=== PATIENT | male | born 1960 | race Caucasian/White ===

== ENCOUNTER → 2017-09-09 14:44 | Outpatient (REF) | payer MEDICAID, SELFPAY ==
[2017-09-09 20:23] LABS: Amphetamine/Metha Screen,Urine Negative ng/mL (<1000); Barbiturates Screen,Urine Negative ng/mL (<200); Benzodiazepines Screen,Urine Negative ng/mL (200); Cannabinoid Screen,Urine Negative ng/mL (<50); Cocaine Screen,Urine Negative ng/g (<300); Methadone Screen,Urine Negative ng/mL (<300); Opiate Screen,Urine Positive ng/mL (<300); Phencyclidine Screen,Urine Negative ng/mL (<25)
== END ==
LOC: LAB 14:44
PROVIDERS: Visit Provider Physician Assistant
DX: Z79.899 Other long term (current) drug therapy (principal)
CPT/HCPCS: 80305

== ENCOUNTER → 2018-01-14 09:27 | Outpatient (CLI) | payer MEDICAID, SELFPAY ==
--- NOTE | 2018-01-14 09:33 | XR_ITS ---
XR finger LT min 2V CLINICAL INDICATION: ITS.REASON: S/P 07-18-17 LEFT THUMB CARPOMETACARPAL ARTHOSIS ORDERING PHYSICIAN: Marlee Niels PATIENT AGE: 57 years Comparison: 08/16/2016 FINDINGS: There is been interval arthrodesis with a large staple stabilizing the first metacarpal carpal joint. There is some minimal lucency around the limbs of the metallic apparatus which is nonspecific. There are no previous exams available for comparison. There are 2 small metallic clips lateral to the scaphotrapezium joint. Mild osteoarthritic changes are present at the first metacarpal carpal joint. There is good alignment. IMPRESSION: Status post arthrodesis of the first metacarpal carpal joint with some lucency around the staple of questionable clinical significance. COMPARISON with old postsurgical films needed. Mild osteoarthritis at the first metacarpocarpal joint with good alignment
== END ==
PROVIDERS: PCP Emergency Medicine; Visit Provider Nurse Practitioner Family
DX: M79.645 Pain in left finger(s) (principal)
CPT/HCPCS: 73140

== ENCOUNTER → 2018-03-28 15:30 | Outpatient (CLI) | payer MEDICAID, SELFPAY ==
[2018-03-28 18:32] LABS: Amphetamine/Metha Screen,Urine Negative ng/mL (<1000); Barbiturates Screen,Urine Negative ng/mL (<200); Benzodiazepines Screen,Urine Negative ng/mL (<200); Cannabinoid Screen,Urine Negative ng/mL (<50); Cocaine Screen,Urine Negative ng/mL (<300); Methadone Screen,Urine Negative ng/mL (<300); Opiate Screen,Urine Positive ng/mL (<300); Phencyclidine Screen,Urine Negative ng/mL (<25)
== END ==
PROVIDERS: Visit Provider Nurse Practitioner Family
DX: Z79.899 Other long term (current) drug therapy (principal)
CPT/HCPCS: 80305

== ENCOUNTER → 2018-04-18 07:45 | Outpatient (CLI) | payer MEDICAID, SELFPAY ==
--- NOTE | 2018-04-18 07:47 | MR_ITS ---
MR cervical spine wo con, MR 3-d myelogram/MRCP HISTORY: HX neck surgery [id number]. Neck and shoulder pain worse in LT arm. Neck pain when turning head from left. Headache. ITS.REASON: Neck pain ORDERING PHYSICIAN: RADHA Escobar PATIENT AGE: 58 years Comparison: MRI 10-22-16 TECHNIQUE: Standard multiplanar multiecho sequences are performed without contrast. 3-D MIP and myelographic images are also rendered and reviewed FINDINGS: There is normal alignment. The craniocervical junction has an unremarkable appearance. C2-C3: Unremarkable. C3-C4: Mild degenerative disc disease with mild bulging disc. C4-C5: Degenerative disc disease with bulging disc. Minimal anterolisthesis of C4 of 3 mm. There is some endplate and uncovertebral hypertrophy along with facet hypertrophic change with moderate left foraminal narrowing. The disc is slightly eccentric toward the left. Canal stenosis is present at this level at 10 mm with type II endplate changes. The left-sided foraminal narrowing may be slightly worse than when compared to the previous exam. C5-C6: Prior anterior cervical disc fusion with artifact obscuring fine detail. C6-C7: Mild concentric bulging disc. C7-T1: Unremarkable. IMPRESSION: 1. Multilevel lumbar spondylosis with postsurgical changes at C5-C6. Please see above for detailed description at each level. 2. Degenerative disc disease at C4-C5 with minimal anterolisthesis of C4 with bulging disc and facet and ligamentum hypertrophy along with uncovertebral and facet hypertrophy with canal stenosis and with moderate left-sided foraminal narrowing slightly worse when compared to the previous exam 3. No disc herniation evident
== END ==
PROVIDERS: PCP Emergency Medicine; Visit Provider Physician Assistant
DX: M43.22 Fusion of spine, cervical region (principal)
CPT/HCPCS: 72141; 76376

== ENCOUNTER → 2018-07-09 18:08 | Outpatient (CLI) | payer MEDICAID, SELFPAY ==
[2018-07-09 21:58] LABS: Amphetamine/Metha Screen,Urine Negative ng/mL (<1000); Barbiturates Screen,Urine Negative ng/mL (<200); Benzodiazepines Screen,Urine Negative ng/mL (<200); Cannabinoid Screen,Urine Negative ng/mL (<50); Cocaine Screen,Urine Negative ng/mL (<300); Methadone Screen,Urine Negative ng/mL (<300); Opiate Screen,Urine Positive ng/mL (<300); Phencyclidine Screen,Urine Negative ng/mL (<25)
== END ==
PROVIDERS: Visit Provider Physician Assistant
DX: Z79.899 Other long term (current) drug therapy (principal)
CPT/HCPCS: 80305

== ENCOUNTER 2018-08-25 07:00 | Outpatient (RCR) | payer MEDICAID, SELFPAY | END 2018-09-29 10:09 | disposition home or self-care (01) | LOC: OT 07:00 | PROVIDERS: Visit Provider Plastic Surgery | DX: M79.645 Pain in left finger(s) | CPT/HCPCS: 97110; 97140; 97165 ==

== ENCOUNTER → 2018-09-10 17:32 | Outpatient (CLI) | payer MEDICAID, SELFPAY | PROVIDERS: Visit Provider Physician Assistant | DX: N39.0 Urinary tract infection, site not specified (principal) | CPT/HCPCS: 87086 ==

== ENCOUNTER → 2018-09-30 12:56 | Outpatient (CLI) | payer MEDICAID, SELFPAY ==
[2018-09-30 12:58] LABS: Microscopic, Urine URINE MICROSCOPIC (MICROSCOPIC)
[2018-09-30 13:21] LABS: Appearance,Urine CLOUDY (Clear); Bilirubin,Urine Negative (Negative); Blood, Urine 3+ (Negative); Color,Urine YELLOW (Yellow); Glucose,Urine (UA) Negative (Negative); Ketones,Urine Negative (Negative); Leukocyte Esterase,Urine 2+ (Negative); Nitrate,Urine Negative (Negative); PH,Urine 5.5 (5.0-8.5); Protein,Urine 2+ (Negative); Specific Gravity, Urine >= 1.030 (1.005-1.030); Urobilinogen,Urine 0.2 EU/dl (0.2)
[2018-09-30 13:44] LABS: Bacteria,Urine 1+ /lpf; RBC,Urine 20-50 #/hpf (0-3); Squamous Epithelial Cell,Urine Occasional #/hpf (0-5); WBC,Urine 50-100 #/hpf (0-3)
== END ==
PROVIDERS: Visit Provider Emergency Medicine
DX: R31.9 Hematuria, unspecified (principal)
CPT/HCPCS: 81001; 87077; 87086

== ENCOUNTER → 2018-10-07 18:23 | Outpatient (CLI) | payer MEDICAID, SELFPAY ==
[2018-10-07 19:31] LABS: Amphetamine/Metha Screen,Urine Negative ng/mL (<1000); Barbiturates Screen,Urine Negative ng/mL (<200); Benzodiazepines Screen,Urine Negative ng/mL (<200); Cannabinoid Screen,Urine Negative ng/mL (<50); Cocaine Screen,Urine Negative ng/mL (<300); Methadone Screen,Urine Negative ng/mL (<300); Opiate Screen,Urine Positive ng/mL (<300); Phencyclidine Screen,Urine Negative ng/mL (<25)
== END ==
PROVIDERS: Visit Provider Physician Assistant
DX: Z79.899 Other long term (current) drug therapy (principal)
CPT/HCPCS: 80305

== ENCOUNTER → 2019-01-12 11:31 | Outpatient (POV) | payer MEDICAID, SELFPAY ==
[2019-01-12 11:52] VITALS: BP 137/70; PULSE 57; RESP 18; O2SAT 98; BMI 26.7
--- NOTE | 2019-01-12 12:20 | HMH.PAINSOAP ---
[facility] Pain Management SOAP Note Subjective:: Patient is a pleasant 58-year-old male who presents today for complaints of neck pain with radiation to his right arm. Patient has had injections in the past and reports that he had 90% relief. He states his last injection therapy was more than a year ago. 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 He feels this has been what has caused increased pain again. He does rate his pain a 7 out of 10 today. He says the pain is at the base of his neck radiating to his right shoulder and arm. He has taken muscle relaxers in the past, along with Lyrica. The patient says he does not do well with oral medication management. He would prefer injections. Patient states pills make me feel funny in my head and I do not like taking them . The patient does take Calumet 7.5 mg 1 p.o. 3 times daily as prescribed per Dr. Story. The patient is not on any anticoagulation therapy. Review of Systems General: No recent weight changes, no fever, no sleep disturbances Respiratory: No cough, no shortness of air, no recurring pulmonary infections Cardiovascular/peripheral vascular: No chest pain, no palpitations, no edema, no shortness of breath Gastrointestinal: No new onset incontinence, normal bowel movements reported Genitourinary: No new onset incontinence Musculoskeletal: Neck pain, right shoulder pain, right arm pain Psychiatric: Normal mood/affect Neurological: [Denies weakness in extremities], [denies balance issues] Objective:: Physical exam General: Alert and oriented x3, no acute distress, pleasant and cooperative, [on room air] Lungs: Respirations even and unlabored, symmetrical chest expansion Eyes: PERRL Musculoskeletal: Flexion and extension of cervical spine somewhat guarded secondary to pain, deep tendon reflexes normal, strength in upper and lower extremities [5/5], normal gait noted Neurological: Speech clear, biomathematician equal, no gross sensory deficit Assessment:: 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 Cervical spondylosis Plan:: We will schedule the patient for vehicle epidural injection at C6 and C7. The patient is not on any anticoagulation therapy. He will continue home stretching program along with NSAIDs. We will see the patient back after his procedure and reassess his symptoms at that time. He is been instructed to call the office if he has any concerns prior to his next appointment. Dr. Hinkle has reviewed this note and agrees with this plan of care. This note was dictated using voice recognition software and make contain errors or omissions.
--- NOTE | 2019-01-12 12:23 | P.CONS_ITS ---
[facility] Pain Management SOAP Note Subjective:: Patient is a pleasant 58-year-old male who presents today for complaints of neck pain with radiation to his right arm. Patient has had injections in the past and reports that he had 90% relief. He states his last injection therapy was more than a year ago. 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 He feels this has been what has caused increased pain again. He does rate his pain a 7 out of 10 today. He says the pain is at the base of his neck radiating to his right shoulder and arm. He has taken muscle relaxers in the past, along with Lyrica. The patient says he does not do well with oral medication management. He would prefer injections. Alec huitron states pills make me feel funny in my head and I do not like taking them . The patient does take Martin 7.5 mg 1 p.o. 3 times daily as prescribed per Dr. Story. The patient is not on any anticoagulation therapy. Review of Systems General: No recent weight changes, no fever, no sleep disturbances Respiratory: No cough, no shortness of air, no recurring pulmonary infections Cardiovascular/peripheral vascular: No chest pain, no palpitations, no edema, no shortness of breath Gastrointestinal: No new onset incontinence, normal bowel movements reported Genitourinary: No new onset incontinence Musculoskeletal: Neck pain, right shoulder pain, right arm pain Psychiatric: Normal mood/affect Neurological: [Denies weakness in extremities], [denies balance issues] Objective:: Physical exam General: Alert and oriented x3, no acute distress, pleasant and cooperative, [on room air] Lungs: Respirations even and unlabored, symmetrical chest expansion Eyes: PERRL Musculoskeletal: Flexion and extension of cervical spine somewhat guarded secondary to pain, deep tendon reflexes normal, strength in upper and lower extremities [5/5], normal gait noted Neurological: Speech clear, it application development 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 Cervical spondylosis Plan:: We will schedule the patient for vehicle epidural injection at C6 and C7. The patient is not on any anticoagulation therapy. He will continue home stretching program along with NSAIDs. We will see the patient back after his procedure and reassess his symptoms at that time. He is been instructed to call the office if he has any concerns prior to his next appointment. Dr. Hinkle has reviewed this note and agrees with this plan of care. This note was dictated using voice recognition software and make contain errors or omissions.
== END ==
PROVIDERS: PCP Emergency Medicine; Visit Provider Clinical Nurse Specialist Family Health
DX: M50.10 Cervical disc disorder with radiculopathy, unspecified cervical region (principal); M47.892 Other spondylosis, cervical region
CPT/HCPCS: 99212

== ENCOUNTER → 2019-02-23 08:54 | Outpatient (POV) | payer MEDICAID, SELFPAY ==
[2019-02-23 09:07] VITALS: BP 135/75; PULSE 56; RESP 18; O2SAT 98; BMI 26.6
--- NOTE | 2019-02-23 09:31 | P.CONS_ITS ---
[facility] Pain Management SOAP Note Subjective:: Patient is a pleasant 59-year-old white male who presents today for follow-up after cervical epidural steroid injection. Patient did not get any relief from this. Most of his pain is when he is turning his neck. Patient has had a previous surgery on his cervical spine he would like a second opinion in regards to his current state. Patient and I discussed facet joint injections he is interested in pursuing this. He is tried and failed multiple modalities of treatment including anti-inflammatories, medications, physical therapy. He is trying to continue a home stretching program however it is becoming more difficult. He is not on any anticoagulation therapy. ROS General: no recent weight change, no fever, no sleep disturbances Respiratory: no cough, no shortness of air, no recurring pulmonary infections Cardiovascular/Peripheral Vascular: No chest pain, No palpitations, no edema, no shortness of breath. Gastrointestinal: no incontinence, normal bowel movements reported Genitourinary: no incontinence Musculoskeletal: Neck pain Psychiatric: normal mood/ affect, Neurological: [denies weakness in extremities], [denies balance issues] Objective:: Physical Exam General: Alert and oriented x3, no acute distress, pleasant and cooperative, [on room air] Lungs: Resps E/U, Symmetrical chest expansion, Eyes: PERRL Musculoskeletal: Flexion and extension of cervical spine somewhat guarded secondary to pain, deep tendon reflexes normal, strength in upper and lower extremities [5/5], normal gait noted positive Spurling's test Neurological: speech clear, car repairer equal, no gross sensory deficits Assessment:: Postlaminectomy syndrome cervical spine with cervical degenerative disc disease along with facet arthropathy Plan:: We will set him up for a C4-C5 C5-C6 cervical facet joint injection/medial branch block bilaterally to see if this is beneficial. He may be a candidate for rhizotomy. He is had this pain for over 6 months and has failed other conservative treatments. We will also set him up with Dr. Scott Abdi for consultation in regards to his cervical pain Dr. Hinkle has reviewed this note and agrees with this plan of care. This note was dictated using voice recognition software and may contain errors or omissions Pain Management Hx Components *Have you ever received a pneumonia vaccine?: No *Have you received a flu vaccine this season?: Yes - *Social History *Occupational Status:: other *Travel in the last 8 weeks: None
== END ==
PROVIDERS: PCP Emergency Medicine; Visit Provider Clinical Nurse Specialist Family Health
DX: M96.1 Postlaminectomy syndrome, not elsewhere classified (principal); M50.30 Other cervical disc degeneration, unspecified cervical region; M54.02 Panniculitis affecting regions of neck and back, cervical region
CPT/HCPCS: 99212

== ENCOUNTER → 2019-03-09 14:09 | Outpatient (CLI) | payer MEDICAID, SELFPAY ==
[2019-03-09 15:02] LABS: Amphetamine/Metha Screen,Urine Negative ng/mL (<1000); Barbiturates Screen,Urine Negative ng/mL (<200); Benzodiazepines Screen,Urine Negative ng/mL (<200); Cannabinoid Screen,Urine Negative ng/mL (<50); Cocaine Screen,Urine Negative ng/mL (<300); Methadone Screen,Urine Negative ng/mL (<300); Opiate Screen,Urine Positive ng/mL (<300); Phencyclidine Screen,Urine Negative ng/mL (<25)
== END ==
PROVIDERS: Visit Provider Physician Assistant
DX: Z79.899 Other long term (current) drug therapy (principal)
CPT/HCPCS: 80305

== ENCOUNTER → 2019-04-30 11:06 | Outpatient (CLI) | payer OTHER, SELFPAY ==
--- NOTE | 2019-04-30 11:08 | MR_ITS ---
PROCEDURE: MR CERVICAL SPINE WO CON CLINICAL INDICATION: NECK PAIN Neck pain, headache, limited range of motion COMPARISON: SPCERVWO MR cervical spine wo con from 04/18/2018 TECHNIQUE: Standard multiplanar multiecho sequences are performed without contrast. 3-D MIP and myelographic images are also rendered and reviewed FINDINGS: Normal alignment. The cranial cervical junction has an unremarkable appearance. C2-C3: Unremarkable. C3-C4: Degenerative disc disease with facet and uncovertebral hypertrophy causing moderate to severe left-sided foraminal narrowing. C4-C5: Degenerative disc disease with mild bulging disc and endplate hypertrophic changes. There is minimal anterolisthesis of C4 of 3 mm. There is canal stenosis at this level at 10 mm. C5-C6: Postsurgical changes with prior anterior cervical disc fusion with moderate degree of artifact. C6-C7: Degenerate disc disease with bulging disc with borderline narrowing of the canal at 11 mm. Mild foraminal narrowing bilaterally slightly greater on the left compared to the right side not significantly changed. C6-C7: Mild degenerative disc disease. Overall no significant change 04/18/2018. No extruded herniated disc evident. IMPRESSION: 1. C3-C4: Degenerative disc disease with facet and uncovertebral hypertrophy causing moderate to severe left-sided foraminal narrowing. 2. C4-C5: Degenerative disc disease with mild bulging disc and endplate hypertrophic changes. There is minimal anterolisthesis of C4 of 3 mm. There is canal stenosis at this level at 10 mm. 3. C5-C6: Postsurgical changes with prior anterior cervical disc fusion with moderate degree of artifact. 4. C6-C7: Degenerate disc disease with bulging disc with borderline narrowing of the canal at 11 mm. Mild foraminal narrowing bilaterally slightly greater on the left compared to the right side not significantly changed. 5. No extruded herniated disc. Overall no significant change Dictated by: Sachin Hernandez MD 05/01/2019 06:29 Electronically signed by Sachin Hernandez MD in [place] 05/01/2019 13:42
== END ==
PROVIDERS: PCP Emergency Medicine; Visit Provider Anesthesiology
DX: M54.2 Cervicalgia (principal)
CPT/HCPCS: 72141; 76376

== ENCOUNTER → 2019-06-09 08:22 | Outpatient (CLI) | payer OTHER, SELFPAY ==
--- NOTE | 2019-06-09 08:29 | XR_ITS ---
PROCEDURE: XR CHEST 2V CLINICAL HISTORY: Congestion Cough and congestion COMPARISON: CXR2 CHEST-AP VIEW ONLY from 12/02/2015 FINDINGS: The cardiomediastinal silhouette and pulmonary vascularity are within normal limits. Numerous small bilateral nodular opacities consistent with miliary nodules from old granulomatous disease. This is not significantly changed. No lobar consolidation or collapse. There is a bone plate along the lower cervical spine. No acute bony abnormalities. IMPRESSION: Chronic changes, no change with no acute Dictated by: Sachin Hernandez MD 06/09/2019 16:18 Electronically signed by Sachin Hernandez MD in [place] 06/09/2019 16:18
== END ==
PROVIDERS: PCP Emergency Medicine; Visit Provider Physician Assistant
DX: J98.8 Other specified respiratory disorders (principal)
CPT/HCPCS: 71046

== ENCOUNTER → 2019-07-06 13:35 | Outpatient (CLI) | payer OTHER, SELFPAY ==
[2019-07-06 14:45] LABS: Amphetamine/Metha Screen,Urine Negative ng/mL (<1000); Barbiturates Screen,Urine Negative ng/mL (<200); Benzodiazepines Screen,Urine Negative ng/mL (<200); Cannabinoid Screen,Urine Negative ng/mL (<50); Cocaine Screen,Urine Negative ng/mL (<300); Methadone Screen,Urine Negative ng/mL (<300); Opiate Screen,Urine Positive ng/mL (<300); Phencyclidine Screen,Urine Negative ng/mL (<25)
== END ==
PROVIDERS: Visit Provider Physician Assistant
DX: Z79.899 Other long term (current) drug therapy (principal)
CPT/HCPCS: 80305

== ENCOUNTER → 2019-12-02 14:15 | Outpatient (CLI) | payer OTHER, SELFPAY ==
--- NOTE | 2019-12-02 14:16 | CA_ITS ---
APPROVED REPORT EXAM: Comprehensive 2D, Doppler, and color-flow Echocardiogram Meatcutter: Marlee Baron RVT Ht: 6 ft 5 in Wt: 226lbs BSA: 2.36 BP: 132/80 mmHg Indications: SOA,FATIGUE,SMOKER 2D Dimensions LVOT 2.18 cm (M/F) 1.5-2.5 M-Mode Dimensions RVDd 3.44 cm (0.9-2.6) LVDd 5.74 cm (3.5-5.7) LVDs 3.74 cm (3.5-5.7) IVSd 0.85 cm (0.6-1.1) PWd 0.55 cm (0.6-1.1) EF (Teich) 63.30% FS 34.80% EDV (Teich) 162.60 mL ESV (Teich) 59.60 mL LV Diastology E/A Ratio 0.89 Mitral Valve MV A Velocity 76.00 (40-130 cm/s) Left Ventricle Left atrium is mildly enlarged, left ventricle is normal size, mild concentric left ventricular hypertrophy, visually estimated ejection fraction 55% with no regional wall motion abnormality. Grade 1 diastolic dysfunction seen without tissue Doppler evidence of raise left atrial pressure. Right Ventricle Right atrium and right ventricle are mildly enlarged with normal contractility. Aortic Valve Aortic valve is minimally thickened and fibrosed, there is no aortic stenosis or aortic insufficiency. Mitral Valve Mitral valve is grossly normal, there is mild mitral regurgitation. Tricuspid Valve Tricuspid valve is grossly normal, there is mild tricuspid regurgitation, calculated right ventricular systolic pressure is within normal range. Pulmonic Valve Pulmonic valve is poorly visualized. Great Vessels Aortic root is normal size. Pericardium No significant pericardial effusion noted. Conclusion 1. Mild biatrial enlargement, normal left ventricular size, mild concentric left ventricular hypertrophy, visually estimated ejection fraction 55% with no regional wall motion abnormality, grade 1 diastolic dysfunction seen without tissue Doppler evidence of raise left atrial pressure. 2. Mildly enlarged right ventricle with normal contractility. 3. Mild mitral and tricuspid regurgitation. 4. No significant pericardial effusion noted. Electronically signed by : Telly Stallings, 12/03/2019 15:24:36
== END ==
PROVIDERS: PCP Physician Assistant; Visit Provider Physician Assistant
DX: R06.02 Shortness of breath (principal)
CPT/HCPCS: 93306

== ENCOUNTER → 2020-01-20 10:40 | Outpatient (CLI) | payer OTHER, SELFPAY ==
[2020-01-20 14:36] LABS: Coronavirus 19 IgG Antibody Negative (Negative); Coronavirus 19 IgM Antibody Negative (Negative)
[2020-01-21 12:19] LABS: Covid-19 Nasal PCR Sendout Lex NOT DETECTED
== END ==
PROVIDERS: PCP Emergency Medicine; Visit Provider Physician Assistant
DX: Z03.818 Encounter for observation for suspected exposure to other biological agents ruled out (principal)
CPT/HCPCS: 36415; 86328; U0004

== ENCOUNTER → 2020-02-22 08:37 | Outpatient (POV) | payer OTHER, SELFPAY ==
[2020-02-22 08:48] VITALS: BP 139/71; PULSE 58; RESP 18; O2SAT 99; BMI 26.7
--- NOTE | 2020-02-22 08:57 | P.CONS_ITS ---
[facility] Pain Management SOAP Note Subjective:: Patient is a pleasant 60-year-old white male who presents today for follow-up. Patient has had epidural injections in the past with good relief. Patient is having difficulty now with turning his head side to side. He is having minimal radiation of pain. Patient does have facet arthropathy. Patient rates his pain today a 7 out of 10. He is currently on Palmer from his primary care physician. Patient would like to do some injective therapy to help with his increase in pain recently. Patient currently not on any anti-inflammatories other than [id number]. We will call in diclofenac 75 mg 1 p.o. twice daily. He is not on any anticoagulation therapy. ROS General: no recent weight change, no fever, no sleep disturbances Respiratory: no cough, no shortness of air, no recurring pulmonary infections Cardiovascular/Peripheral Vascular: No chest pain, No palpitations, no edema, no shortness of breath. Gastrointestinal: no new onset incontinence, normal bowel movements reported Genitourinary: no new onset incontinence Musculoskeletal: Neck pain Psychiatric: normal mood/ affect Neurological: [denies new onset weakness in extremities], [denies new onset balance issues] Objective:: Physical Exam General: Alert and oriented x3, no acute distress, pleasant and cooperative, [on room air] Lungs: Resps E/U, Symmetrical chest expansion, Eyes: PERRL Musculoskeletal: Flexion and extension of cervical spine somewhat guarded secondary to pain, deep tendon reflexes normal, strength in upper and lower extremities [5/5], normal gait noted Neurological: speech clear, crematory operator 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 Patient may be a candidate for a neurotomy in the future. Patient understands it this is diagnostic in nature. We will also call in diclofenac 75 mg 1 p.o. twice daily for the patient. I will follow-up with him after his injection reassess his symptoms at that time he has been instructed to call the office if he has any issues prior to his next appointment. Dr. Hinkle has reviewed this note and agrees with this plan of care. This note was dictated using voice recognition software and may contain errors or omissions [facility] History I have reviewed the patient's past medical history: Yes Medical History: Reports:: Gastroesophageal Reflux Disease(GERD) Denies:: Cancer, Diabetes Mellitus Type 1, MRSA, Seizures *Have you ever received a pneumonia vaccine?: Yes *Have you received a flu vaccine this season?: Yes Other Medical History: Reports: Arthritis, Other Laterality Cases: Bilateral: Tonsillectomy Other Surgeries: Yes: Cancer Surgery, Colonoscopy, Hernia Repair, Skin Cancer Excision, Other Amputation: No Fractures: No - *Social History Smoking Status: Current every day smoker Tobacco Type: cigarettes # Packs/Day (cigarettes): 1 Alcohol Intake: never Substance Use Type: marijuana *Occupational Status:: other Housing: house Household Members: none *Travel in the last 8 weeks: None Family Hx:: No significant family history
== END ==
PROVIDERS: PCP Emergency Medicine; Visit Provider Clinical Nurse Specialist Family Health
DX: M50.10 Cervical disc disorder with radiculopathy, unspecified cervical region (principal); M96.1 Postlaminectomy syndrome, not elsewhere classified; M12.88 Other specific arthropathies, not elsewhere classified, other specified site
CPT/HCPCS: 99212

== ENCOUNTER → 2020-04-26 11:51 | Outpatient (CLI) | payer OTHER, SELFPAY ==
--- NOTE | 2020-04-26 11:57 | XR_ITS ---
PROCEDURE: XR ELBOW LT MIN 3V CLINICAL INDICATION: left elbow pain Injury with pain COMPARISON: No exams were available for comparison FINDINGS: There is mild soft tissue swelling at the olecranon region with at least 2 small calcific densities which may be due to developing enthesophyte. Faint calcification is present over the lateral epicondylar region possibly due to an area avulsion injury or ligamentous calcification. No acute fracture is apparent. No displaced fat pad. The joint spaces are well-preserved. No significant degenerative/arthritic changes. No erosive changes evident. Other findings:None. IMPRESSION: Soft tissue swelling at the olecranon suggesting olecranon bursitis with possible developing enthesophytes and old avulsion injury versus ligamentous calcification at the lateral epicondyle. Dictated by: Sachin Hernandez MD 04/26/2020 12:30 Sachin Hernandez MD in [place] 04/26/2020 12:30
== END ==
PROVIDERS: PCP Physician Assistant; Visit Provider Physician Assistant
DX: M25.522 Pain in left elbow (principal)
CPT/HCPCS: 73080

== ENCOUNTER → 2020-06-13 15:36 | Outpatient (CLI) | payer OTHER, SELFPAY ==
--- NOTE | 2020-06-13 15:38 | XR_ITS ---
PROCEDURE: XR CERVICAL SPINE 4V CLINICAL INDICATION: neck pain COMPARISON: No exams were available for comparison FINDINGS: There is degenerative disc disease at C3-C4 and C4-C5. There has been prior anterior cervical disc fusion at C5-C6. Degenerative disc disease is also present at C6-C7. Foraminal narrowing is present on the left at C3-C4 and C4-C5. Facet arthritic changes are present at C3 and C4 left more extensive than right. Other findings:None. IMPRESSION: There is multilevel cervical spondylosis as described above with multilevel degenerative disc disease and left-sided foraminal narrowing at C3-C4 and C4-C5. Postsurgical changes from prior anterior cervical disc fusion at C5-C6 Dictated by: Sachin Hernandez MD 06/13/2020 18:28 Sachin Hernandez MD in [facility] 06/13/2020 18:28
== END ==
PROVIDERS: PCP Physician Assistant; Visit Provider Physician Assistant
DX: M54.2 Cervicalgia (principal)
CPT/HCPCS: 72050

== ENCOUNTER → 2020-06-14 14:47 | Outpatient (CLI) | payer OTHER, SELFPAY ==
[2020-06-14 15:44] LABS: Alanine Aminotransferase 27 U/L (12-78); Albumin Level 4.1 g/dl (3.5-5.0); Albumin/Globulin Ratio 1.6 (1.1-1.8); Alkaline Phosphatase 97 U/L (38-126); Anion Gap 8.5 mEq/L (5-15); Aspartate Amino Transferase 34 U/L (17-59); Bilirubin,Total 0.5 mg/dl (0.2-1.3); Blood Urea Nitrogen 23 mg/dl (9-20); Calcium 9.4 mg/dl (8.4-10.2); Carbon Dioxide 27 mmol/L (22.0-30.0); Chloride 106 mmol/L (98-107); Chol/HDL Ratio 6.5 (1-3.5); Cholesterol 213 mg/dl (140-200); Estimated Glomerular Filt Rate 77 ml/min (>60); GFR (African American) 93 ML/MIN (>60); Globulin 2.6 g/dL (1.3-3.2); Glucose 106 mg/dl (74-100); HDL Cholesterol 33 mg/dl (40-60); Potassium 4.5 mmoL/L (3.5-5.1); Sodium 137 mmol/L (136-145); Total Protein,Serum 6.7 g/dl (6.3-8.2); Triglycerides 317 mg/dl (30-150); VLDL Cholesterol 63 mg/dL (0-40)
[2020-06-14 15:54] LABS: Basophils % 0.6 % (0.1-2.0); Eosinophils # 0.1 K/mm3 (0.0-0.4); Eosinophils % 2.1 % (0.1-12.0); Hematocrit 43.1 % (42.0-52.0); Hemoglobin 14.3 g/dL (14.1-18.0); Lymphocytes # 1.5 K/mm3 (0.7-4.5); Lymphocytes % 36.4 % (10-50); Mean Corpuscular HGB Conc 33.2 g/dL (31.8-35.4); Mean Corpuscular Hemoglobin 29.4 pg (27.0-31.2); Mean Corpuscular Volume 88.6 fl (80-94); Mean Platelet Volume 8.7 fl (7.4-10.4); Monocytes # 0.4 K/mm3 (0.1-1.0); Monocytes % 9.4 % (1.7-9.3); Neutrophils # 2.1 K/mm3 (1.8-7.8); Neutrophils % 51.6 % (37.0-80.0); Platelet Count 224 K/mm3 (142-424); Red Blood Count 4.87 M/mm3 (4.60-6.20); Red Cell Distribution Width 13.8 % (11.5-17.5); White Blood Count 4.1 K/mm3 (4.8-10.8)
[2020-06-14 15:55] LABS: Direct LDL Cholesterol 125.48 mg/dL (100-129)
[2020-06-14 16:02] LABS: 25-OH Vitamin D, Total 29.9 ng/mL (30-100); Free T4 (Free Thyroxine) 1.07 ng/dl (0.78-2.19)
[2020-06-14 16:15] LABS: Prostate Specific Ag Screen 0.4 ng/ml (0.0-4.0); Thyroid Stimulating Hormone 3.28 uIU/mL (0.465-4.68)
== END ==
PROVIDERS: Visit Provider Physician Assistant
DX: Z00.00 Encounter for general adult medical examination without abnormal findings (principal); M54.2 Cervicalgia; M54.5 Low back pain; M25.522 Pain in left elbow; E55.9 Vitamin D deficiency, unspecified; Z79.899 Other long term (current) drug therapy; Z12.5 Encounter for screening for malignant neoplasm of prostate
CPT/HCPCS: 80053; 80061; 82306; 84439; 84443; 85025; G0103

== ENCOUNTER → 2020-06-21 08:40 | Outpatient (CLI) | payer OTHER, SELFPAY ==
--- NOTE | 2020-06-21 08:48 | CT_ITS ---
PROCEDURE: CT SOFT TISSUE NECK W CON CLINICAL HISTORY: left lymph node swollen Neck swelling/adenopathy COMPARISON: No exams were available for comparison TECHNIQUE: Oral Contrast: 75 mL Isovue 370 IV Contrast: None Axial images obtained with sagittal and coronal reformats. All CT scans at the facility use one or more dose reduction, viz: automated exposure control, ma/kV adjustment per patient size (including targeted exams where dose is matched to indication, i.e. head), or iterative reconstruction technique. FINDINGS: Mucous retention cysts are present in the floor of the maxillary sinuses on both sides. There is also mucosal thickening the left sphenoid sinus posteriorly. There is a BB placed along the posterior and lateral aspect of the neck on the left to dimitri the area of palpable concern. In this region there are several small lymph nodes deep to the sternocleidomastoid. This small chain of nodes extends from the level of C2-C3 inferiorly to the C6 level. The nodes measure up 2 1.5 x 0.7 cm. There is also some stranding of the soft tissues deep to the left sternocleidomastoid and posterior to the jugular vein. Lymphadenitis is considered. Other scattered small nodes are present in the neck. The nasopharynx has an unremarkable appearance. There is some slight asymmetric increased soft tissue density in the hypo pharyngeal region on the left. This is at the level of the base of the epiglottis. While this may be due to nondistention, 1 cannot exclude the possibility of a mucosal lesion and direct visualization is suggested. The epiglottis has an unremarkable appearance. There has been a prior anterior cervical disc fusion at C5-C6. There is degenerative disc disease at C6-C7. There is cervical curvature convex right. There are some centrilobular emphysematous changes with COPD in the lung apices. The salivary glands and thyroid gland have an unremarkable appearance. Artifact is present from dental work. IMPRESSION: 1. Scattered small lymph nodes are present deep to the sternocleidomastoid muscle on the left/level 5a with stranding of the fat in this region. These findings would suggest lymphadenitis. Follow-up suggested to confirm resolution as neoplastic involvement is not excluded. 2. Slight asymmetric fullness in the parapharyngeal region on the left in the hypopharynx at the level of the epiglottis. This may only be due to nondistention. Direct visualization is suggested as a mucosal lesion is not excluded. 3. Centrilobular emphysema with COPD Dictated by: Sachin Hernandez MD 06/22/2020 07:05 Sachin Hernandez MD in [facility] 06/22/2020 07:05
== END ==
PROVIDERS: PCP Physician Assistant; Visit Provider Otolaryngology
DX: R59.9 Enlarged lymph nodes, unspecified (principal)
CPT/HCPCS: 70491; Q9967

== ENCOUNTER → 2020-06-24 08:23 | Outpatient (CLI) | payer OTHER, SELFPAY ==
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
== END ==
PROVIDERS: PCP Physician Assistant; Visit Provider Physician Assistant
DX: M25.522 Pain in left elbow (principal)
CPT/HCPCS: 73221

== ENCOUNTER → 2020-10-19 10:14 | Outpatient (CLI) | payer OTHER, SELFPAY ==
[2020-10-19 11:10] LABS: Chloride 108 mmol/L (98-107); Potassium 4.2 mmoL/L (3.5-5.1); Sodium 139 mmol/L (136-145)
[2020-10-19 11:13] LABS: Blood Urea Nitrogen 17 mg/dl (9-20); Estimated Glomerular Filt Rate 99 ml/min (>60); GFR (African American) 120 ML/MIN (>60)
[2020-10-19 11:14] LABS: Anion Gap 9.2 mEq/L (5-15); Calcium 9.3 mg/dl (8.4-10.2); Carbon Dioxide 26 mmol/L (22.0-30.0); Glucose 112 mg/dl (74-100)
== END ==
PROVIDERS: Visit Provider Physician Assistant
DX: Z01.818 Encounter for other preprocedural examination (principal)
CPT/HCPCS: 36415; 80048

== ENCOUNTER → 2020-10-19 10:27 | Outpatient (CLI) | payer OTHER, SELFPAY ==
--- NOTE | 2020-10-19 10:27 | CT_ITS ---
PROCEDURE: CT SOFT TISSUE NECK WO/W CON CLINICAL HISTORY: lymphadenitis; f/u 07/03 Hx lumps on neck since June 2020. COMPARISON: CT CT SOFT TISSUE NECK W CON from 06/21/2020 TECHNIQUE: Oral Contrast: None IV Contrast: 75 mL Isovue 370 Axial images obtained with sagittal and coronal reformats. All CT scans at the facility use one or more dose reduction, viz: automated exposure control, ma/kV adjustment per patient size (including targeted exams where dose is matched to indication, i.e. head), or iterative reconstruction technique. FINDINGS: The nasopharynx has an unremarkable appearance. There remains asymmetric fullness in the left parapharyngeal region beginning at the level of the uvula and extending inferiorly to the epiglottic region. Direct visualization is suggested to exclude underlying mucosal lesion. There remains mildly prominent lymph nodes in the neck on the left in the deep jugular chain and deep to the sternocleidomastoid. The nodes have not significantly changed in size. There remains some stranding of the fat deep to the sternocleidomastoid as previously described not significantly changed. No abscess is evident. The epiglottis and glottic region have an unremarkable appearance. No subglottic narrowing. Images of the upper chest show centrilobular emphysema with scattered granulomas. There has been prior anterior cervical disc fusion at C5-C6. There is an old fracture versus ununited ossification center involving the tip of the spinous process of C7 with nuchal ligament calcification also noted. IMPRESSION: Overall no significant change in the mildly prominent cervical lymph nodes on the left with some stranding of the fat deep to the sternocleidomastoid the. The nodes may be secondary to inflammation or neoplasm. There remains asymmetric fullness in the left parapharyngeal region extending from the level of the uvula to the epiglottic region laterally. Neoplasm is a consideration. Direct visualization is suggested. Dictated by: Sachin Hernandez MD 10/20/2020 12:30 Sachin Hernandez MD in [place] 10/20/2020 12:30
== END ==
PROVIDERS: PCP Physician Assistant; Visit Provider Physician Assistant
DX: I88.9 Nonspecific lymphadenitis, unspecified (principal)
CPT/HCPCS: 70492; Q9967

== ENCOUNTER → 2020-11-21 10:13 | Outpatient (CLI) | payer OTHER, SELFPAY ==
--- NOTE | 2020-11-21 10:14 | CA_ITS ---
APPROVED REPORT Bilateral Lower Extremity Venous Study for DVT. 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 Indications pain and swelling LLE, hx long distance travel to [place] [facility] CFV (L): compressive, spontaneous, phasic, augmentation FEM (L): compressive, spontaneous, phasic, augmentation POP (L): compressive, spontaneous, phasic, augmentation DFV (L): compressive, spontaneous, phasic, augmentation, prominent in size PTV (L): compressive, spontaneous, phasic, augmentation GSV (L): compressive, spontaneous, phasic, augmentation SSV (L): compressive, spontaneous, phasic, augmentation Peroneals (L):compressive, spontaneous, phasic, augmentation GAS (L): compressive, spontaneous, phasic, augmentation Findings Color flow duplex demonstrates no evidence of DVT of the following left lower extremity Veins:Common Femoral Vein, Femoral Vein, Popliteal Vein, Posterior Tibial Veins, Peroneal Veins, Deep Femoral Vein. Conclusion No evidence of DVT Electronically signed by : Anahi Johnston, 11/21/2020 17:10:45
== END ==
PROVIDERS: PCP Physician Assistant; Visit Provider Physician Assistant
DX: M79.605 Pain in left leg (principal); M79.89 Other specified soft tissue disorders
CPT/HCPCS: 93971

== ENCOUNTER → 2021-01-09 13:44 | Outpatient (CLI) | payer OTHER, SELFPAY ==
[2021-01-09 17:44] LABS: Amphetamine/Metha Screen,Urine Negative ng/ml (<1000); Barbiturates Screen,Urine Negative ng/ml (<200)
[2021-01-09 17:45] LABS: Benzodiazepines Screen,Urine Negative ng/ml (<200)
[2021-01-09 17:46] LABS: Cannabinoid Screen,Urine Negative ng/ml (<50)
[2021-01-09 17:47] LABS: Cocaine Screen,Urine Negative ng/ml (<300)
[2021-01-09 17:48] LABS: Methadone Screen,Urine Negative ng/ml (<300)
[2021-01-09 17:49] LABS: Opiate Screen,Urine Positive ng/ml (<300); Phencyclidine Screen,Urine Negative ng/ml (<25)
== END ==
PROVIDERS: Visit Provider Physician Assistant
DX: Z79.899 Other long term (current) drug therapy (principal)
CPT/HCPCS: 80305

== ENCOUNTER 2021-03-12 17:34 | Emergency (ER) | payer OTHER, SELFPAY ==
--- NOTE | 2021-03-12 19:25 | PC.NURSE ---
Have attempted several times to call back pt to ER, however pt has not been in lobby or outside waiting area.
[2021-03-12 19:27] VITALS: BP 0/0; PULSE 0; RESP 0; TEMP -17.7; TEMP 0
== END 2021-03-12 19:35 | disposition left against medical advice (07) ==
LOC: ER 19:32
PROVIDERS: Emergency Provider Emergency Medicine; PCP Physician Assistant
DX: Z53.21 Procedure and treatment not carried out due to patient leaving prior to being seen by health care provider (principal)
CPT/HCPCS: 99211

== ENCOUNTER → 2021-04-06 10:31 | Outpatient (CLI) | payer OTHER, SELFPAY | PROVIDERS: PCP Physician Assistant; Visit Provider Nurse Practitioner | DX: Z20.822 Contact with and (suspected) exposure to COVID-19 (principal) | CPT/HCPCS: C9803; U0003; U0005 ==

== ENCOUNTER → 2021-05-12 12:51 | Outpatient (CLI) | payer OTHER, SELFPAY ==
[2021-05-12 13:14] LABS: Barbiturates Screen,Urine Negative ng/ml (<200); Benzodiazepines Screen,Urine Negative ng/ml (<200)
[2021-05-12 13:15] LABS: Amphetamine/Metha Screen,Urine Negative ng/ml (<1000)
[2021-05-12 13:16] LABS: Cannabinoid Screen,Urine Negative ng/ml (<50); Cocaine Screen,Urine Negative ng/ml (<300)
[2021-05-12 13:17] LABS: Methadone Screen,Urine Negative ng/ml (<300)
[2021-05-12 13:18] LABS: Opiate Screen,Urine Negative ng/ml (<300); Phencyclidine Screen,Urine Negative ng/ml (<25)
== END ==
PROVIDERS: Visit Provider Nurse Practitioner Family
DX: M54.9 Dorsalgia, unspecified (principal)
CPT/HCPCS: 80305

== ENCOUNTER → 2021-10-30 08:44 | Outpatient (CLI) | payer OTHER, SELFPAY ==
[2021-10-30 13:51] LABS: Chloride 107 mmol/L (98-107); Potassium 4.3 mmoL/L (3.5-5.1); Sodium 139 mmol/L (136-145)
[2021-10-30 13:53] LABS: Blood Urea Nitrogen 18 mg/dl (9-20); Estimated Glomerular Filt Rate 115 ml/min (>60); GFR (African American) 140 ML/MIN (>60)
[2021-10-30 13:54] LABS: Alanine Aminotransferase 24 U/L (12-78); Albumin Level 4.1 g/dl (3.5-5.0); Albumin/Globulin Ratio 1.5 (1.1-1.8); Alkaline Phosphatase 103 U/L (38-126); Anion Gap 9.3 mEq/L (5-15); Aspartate Amino Transferase 37 U/L (17-59); Bilirubin,Total 0.6 mg/dl (0.2-1.3); Calcium 8.5 mg/dl (8.4-10.2); Carbon Dioxide 27 mmol/L (22.0-30.0); Cholesterol 208 mg/dl (140-200); Globulin 2.7 g/dL (1.3-3.2); Glucose 97 mg/dl (74-100); Iron 88 ug/dL (49-181); Total Protein,Serum 6.8 g/dl (6.3-8.2); Triglycerides 204 mg/dl (30-150); VLDL Cholesterol 41 mg/dL (0-40)
[2021-10-30 13:55] LABS: Chol/HDL Ratio 6.1 (1-3.5); HDL Cholesterol 34 mg/dl (40-60)
[2021-10-30 14:03] LABS: Basophils # 0.1 K/mm3 (0-0.2); Basophils % 1.1 % (0.1-2.0); Eosinophils # 0.1 K/mm3 (0.0-0.4); Hematocrit 42.9 % (42.0-52.0); Lymphocytes # 1.2 K/mm3 (0.7-4.5); Lymphocytes % 26.7 % (10-50); Mean Corpuscular HGB Conc 32.6 g/dL (31.8-35.4); Mean Corpuscular Hemoglobin 29.8 pg (27.0-31.2); Mean Corpuscular Volume 91.3 fl (80-94); Mean Platelet Volume 9.3 fl (7.4-10.4); Monocytes # 0.4 K/mm3 (0.1-1.0); Monocytes % 9.2 % (1.7-9.3); Neutrophils # 2.7 K/mm3 (1.8-7.8); Platelet Count 245 K/mm3 (142-424); Red Cell Distribution Width 14.9 % (11.5-17.5); White Blood Count 4.5 K/mm3 (4.8-10.8)
[2021-10-30 14:04] LABS: Total Iron Binding Capacity 378 ug/dL (261-462)
[2021-10-30 14:06] LABS: Direct LDL Cholesterol 127.55 mg/dL (100-129)
[2021-10-30 14:12] LABS: 25-OH Vitamin D, Total 38.4 ng/mL (30-100)
[2021-10-30 14:26] LABS: Thyroid Stimulating Hormone 3.55 uIU/mL (0.465-4.68)
[2021-10-30 14:30] LABS: Ferritin 71.8 ng/ml (17.9-464)
[2021-10-30 15:15] LABS: Prostate Specific Ag Screen 0.4 ng/ml (0.0-4.0)
[2021-10-30 15:51] LABS: Vitamin B12 371 pg/mL (239-931)
[2021-10-30 15:53] LABS: Folate 7.36 ng/mL
== END ==
PROVIDERS: Visit Provider Physician Assistant
DX: M79.10 Myalgia, unspecified site (principal); E78.5 Hyperlipidemia, unspecified; R53.83 Other fatigue; Z12.5 Encounter for screening for malignant neoplasm of prostate
CPT/HCPCS: 80053; 80061; 82306; 82607; 82728; 82746; 83540; 83550; 83735; 84443; 85025; G0103

== ENCOUNTER → 2021-11-06 12:46 | Outpatient (CLI) | payer OTHER, SELFPAY ==
--- NOTE | 2021-11-06 12:52 | US_ITS ---
FINAL REPORT CLINICAL HISTORY: .left testicular pain; intermittent left lower quad pain FINDINGS: Technique: Ultrasound images of the testicles were obtained. Findings: The testicles are normal in size. No intratesticular mass identified. Arterial flow is identified bilaterally. There are small bilateral varicoceles. There is a 7 mm right epididymal cyst. No abnormality in the region of clinical symptoms. IMPRESSION: No intratesticular mass or evidence of torsion. 7 mm right epididymal cyst. Small bilateral varicoceles. Reviewed, Interpreted and Dictated by Jose Angel Goff MD Transcribed by Aba Faustin Authenticated by Jose Angel Goff MD on 11/06/2021 04:32:46 PM [facility]
== END ==
PROVIDERS: PCP Physician Assistant; Visit Provider Physician Assistant
DX: N50.812 Left testicular pain (principal)
CPT/HCPCS: 76870

== ENCOUNTER → 2022-01-03 09:20 | Outpatient (CLI) | payer OTHER, SELFPAY ==
[2022-01-02 17:19] LABS: Alanine Aminotransferase 26 U/L (12-78); Albumin Level 4.1 g/dl (3.5-5.0); Albumin/Globulin Ratio 1.5 (1.1-1.8); Alkaline Phosphatase 107 U/L (38-126); Anion Gap 10.3 mEq/L (5-15); Aspartate Amino Transferase 44 U/L (17-59); Basophils % 0.7 % (0.1-2.0); Bilirubin,Total 0.5 mg/dl (0.2-1.3); Blood Urea Nitrogen 19 mg/dl (9-20); Calcium 9.4 mg/dl (8.4-10.2); Carbon Dioxide 29 mmol/L (22.0-30.0); Chloride 103 mmol/L (98-107); Eosinophils # 0.1 K/mm3 (0.0-0.4); Eosinophils % 1.3 % (0.1-12.0); Estimated Glomerular Filt Rate 86 ml/min (>60); GFR (African American) 105 ML/MIN (>60); Globulin 2.8 g/dL (1.3-3.2); Glucose 110 mg/dl (74-100); Hemoglobin 14.1 g/dL (14.1-18.0); Lymphocytes # 1.6 K/mm3 (0.7-4.5); Lymphocytes % 24.6 % (10-50); Mean Corpuscular HGB Conc 32.7 g/dL (31.8-35.4); Mean Corpuscular Hemoglobin 29.7 pg (27.0-31.2); Mean Corpuscular Volume 90.9 fl (80-94); Mean Platelet Volume 8.8 fl (7.4-10.4); Monocytes # 0.5 K/mm3 (0.1-1.0); Monocytes % 8.2 % (1.7-9.3); Neutrophils # 4.2 K/mm3 (1.8-7.8); Neutrophils % 65.2 % (37.0-80.0); Platelet Count 232 K/mm3 (142-424); Potassium 4.3 mmoL/L (3.5-5.1); Red Blood Count 4.73 M/mm3 (4.60-6.20); Red Cell Distribution Width 14.2 % (11.5-17.5); Sodium 138 mmol/L (136-145); Total Protein,Serum 6.9 g/dl (6.3-8.2); White Blood Count 6.5 K/mm3 (4.8-10.8)
== END ==
PROVIDERS: Visit Provider Physician Assistant
DX: I10 Essential (primary) hypertension (principal)
CPT/HCPCS: 80053; 85025

== ENCOUNTER → 2022-01-16 07:17 | Outpatient (CLI) | payer OTHER, SELFPAY ==
--- NOTE | 2022-01-16 07:18 | CT_ITS ---
FINAL REPORT CLINICAL HISTORY: lung cancer screening 1/2 pack every other day. X40 years smoked no copd or CAD. hx of esophageal cancer and prostate cancer. Being treated now for skin cancer. FINDINGS: Low-Dose Chest CT CTDI vol (mGy): 2.90 DLP (mGy-cm): 108.90 Axial images were obtained from the lung apex to the mid abdomen by computed tomography. Low-dose protocol was utilized. FINDINGS: CHEST: There are several borderline sized bilateral axillary lymph nodes as a nonspecific finding. There is no hilar or mediastinal adenopathy. The heart is proper size. There is no pericardial or pleural effusion. Limited images of the upper abdomen demonstrate multiple low-attenuation hepatic masses which cannot be accurately characterized without contrast but may represent cysts. Lung window images demonstrate mild changes of emphysema. There are numerous calcified granulomas bilaterally. There also multiple less than 5 mm nodules that are non definitely calcified. There is mild bibasilar atelectasis or scarring. IMPRESSION: Lung RADS category 2S. Recommend 12 month follow-up low-dose chest CT. S modifier: 1. Bilateral borderline axillary nodes, nonspecific but may be reactive. If indicated a follow-up CT may be helpful. 2. Multiple hepatic masses, may represent cysts. These can be further evaluated with liver mass protocol CT or liver MRI. Reviewed, Interpreted and Dictated by Mario Cheung III, MD Transcribed by Alissa Traore Authenticated and [facility]
== END ==
PROVIDERS: Visit Provider Physician Assistant
DX: Z87.891 Personal history of nicotine dependence (principal); Z12.2 Encounter for screening for malignant neoplasm of respiratory organs
CPT/HCPCS: 71271

== ENCOUNTER → 2022-01-23 09:17 | Outpatient (CLI) | payer OTHER, SELFPAY ==
--- NOTE | 2022-01-23 09:18 | MR_ITS ---
FINAL REPORT CLINICAL HISTORY: liver protocol. ABNORMAL CHEST CT. RIGHT UPPER QUADRANT PAIN WITH NAUSEA AND VOMITING. 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 19ML PROHANCE GIVEN. FINDINGS: Multiplanar MR imaging of the abdomen was obtained with and without contrast. On the pre infused T2 weighted images, there are multiple fluid signal intensity structures in both lobes of the liver. Largest structure measures up to 4.1 cm in the lateral segment in the left lobe of the liver. Findings demonstrate fluid signal intensity on all sequences, probably related to benign cyst. There is a similar appearing structure in the lower pole of the left kidney measuring up to 2.8 cm, also likely a benign cyst. There is no evidence of enhancement of the hepatic lesions. There are no findings to suggest presence of a hemangioma. Cystic structure in the in the lower pole of the left kidney does not enhance. The remainder of the abdomen appears unremarkable. IMPRESSION: Hepatic and renal lesions consistent with benign cysts. Reviewed, Interpreted and Dictated by Jose Angel Goff MD Transcribed by Steph Perez Authenticated and [facility]
--- NOTE | 2022-01-23 10:26 | CT_ITS ---
FINAL REPORT TECHNIQUE: Axial images through the chest was performed with and without contrast by computed tomography. Sagittal and coronal reformatted images were obtained and reviewed. This study was performed with techniques to keep radiation doses as low as reasonably achievable (ALARA). Individualized dose reduction techniques using automated exposure control or adjustment of mA and/or kV according to the patient's size were employed. CLINICAL HISTORY: bilateral axilla..75 ml of iso 370 and saline flush FINDINGS: On the pre infused images, there is no significant vascular calcification. There is irregular stranding in the right axilla. There are mildly enlarged lymph nodes. Right axillary nodes measure up to 1.9 cm in greatest dimension. The margins are slightly ill-defined. There is mild adenopathy on the left measuring up to 1.4 cm. There is no stranding seen in the left axilla. There is scarring in the lung bases. . There is mild centrilobular emphysema. There are a few scattered noncalcified nodules in both upper lobes of the lungs measuring up to 4 mm or less in size. Findings are well seen on images 22-25 of series 4. Limited images of the upper abdomen reveal multiple well-circumscribed low-attenuation structures in the liver measuring up to 3.8 cm. IMPRESSION: Adenopathy and soft tissue stranding in the right axilla, appears inflammatory. Please correlate with clinical symptoms. Small noncalcified nodules in the upper lobes which are nonspecific. Recommend follow-up in 1 year. Reviewed, Interpreted and Dictated by Jose Angel Goff MD Transcribed by Steph Perez Authenticated and [facility]
== END ==
PROVIDERS: PCP Physician Assistant; Visit Provider Physician Assistant
DX: R16.0 Hepatomegaly, not elsewhere classified (principal); R59.9 Enlarged lymph nodes, unspecified
CPT/HCPCS: 71270; 74183; A9576; Q9967

== ENCOUNTER → 2022-05-03 14:45 | Outpatient (CLI) | payer OTHER, SELFPAY ==
[2022-05-03 16:55] LABS: Adenovirus,PCR Not Detected (NotDetected); Bordetella Pertussis Not Detected (NotDetected); Chlamydophila Pneumoniae, PCR Not Detected (NotDetected); Coronavirus 19, PCR Not Detected (NotDetected); Coronavirus 229E Not Detected (NotDetected); Coronavirus NL63 Not Detected (NotDetected); Coronavirus OC43 Not Detected (NotDetected); Coronovirus HKU1,PCR Not Detected (NotDetected); Human Metapneumovirus Not Detected (NotDetected); Influenza A, PCR Not Detected (NotDetected); Influenza AH1, 2009 Not Detected (NotDetected); Influenza AH1, PCR Not Detected (NotDetected); Influenza AH3,PCR Not Detected (NotDetected); Influenza B, PCR Not Detected (NotDetected); Mycoplasma Pneumoniae, PCR Not Detected (NotDetected); Parainfluenza 1, PCR Not Detected (NotDetected); Parainfluenza 2, PCR Not Detected (NotDetected); Parainfluenza 3, PCR Not Detected (NotDetected); Parainfluenza 4, PCR Not Detected (NotDetected); Respiratory Syncytial Virus Not Detected (NotDetected); Rhinovirus/Enterovirus Not Detected (NotDetected)
== END ==
PROVIDERS: PCP Physician Assistant; Visit Provider Physician Assistant
DX: Z20.822 Contact with and (suspected) exposure to COVID-19 (principal); R05.9 Cough, unspecified
CPT/HCPCS: 87581; 87632; 87798; C9803; U0003; U0005

== ENCOUNTER → 2022-07-11 07:41 | Outpatient (CLI) | payer OTHER, SELFPAY ==
--- NOTE | 2022-07-11 07:42 | FL_ITS ---
FINAL REPORT CLINICAL HISTORY: DYSPHAGIA FLUORO TIME: 3 FINDINGS: ESOPHAGRAM HISTORY: Dysphagia PROCEDURE: The patient ingested barium. Effervescent crystals were also administered. Spot and overhead films were obtained. FINDINGS:There is penetration of contrast into the airway but no aspiration observed. The epiglottis has an unusual appearance. There are postoperative changes of previous cervical fusion. There is a prominent cricopharyngeus muscle anterior to the cervical fusion. The esophagus distends appropriately in this region with contrast. Distally, there is a caliber change of the esophagus which delays passage of a barium tablet. There are unusual and prominent proximal gastric folds. There is no reflux of contrast. IMPRESSION: 1. Penetration into the airway of contrast without aspiration. 2. Unusual appearance of the epiglottis. 3. Prominent cricopharyngeus muscle anterior to cervical fusion hardware. 4. Narrowing of the distal esophagus with delay in passage of a barium tablet. 5. Prominent, unusual appearing folds of the gastric fundus. Endoscopic correlation is recommended for the above findings. Films reviewed , interpreted and dictated by Dr. Cheung Transcribed by James Valerio PA-C. Reviewed, Interpreted and Dictated by Mario Cheung III, MD Transcribed by RADHA Bates Authenticated and [facility]
--- NOTE | 2022-07-11 08:37 | MR_ITS ---
FINAL REPORT CLINICAL HISTORY: [facility] pain FINDINGS: Multiplanar MR imaging of the cervical spine was performed without contrast. There is fusion of C5-C6. On the sagittal T2-weighted images, disc degeneration is seen throughout. There is no evidence of fracture. The vertebral alignment is normal. The cervical spinal cord has an unremarkable appearance without evidence of mass, edema or syrinx. No significant canal stenosis is identified. The cervicomedullary junction is normal. C2-3: An annular bulge is present. There is no significant canal stenosis or neural foraminal narrowing. C3-4: There is a disc osteophyte complex with moderate left neural foraminal narrowing. C4-5: There is a disc osteophyte complex. There is mild right and severe left neural foraminal narrowing. C5-6: There is fusion at this level. There is no significant canal stenosis or neural foraminal narrowing. C6-7: There is a disc osteophyte complex with mild bilateral neural foraminal narrowing. C7-T1: There is no significant canal stenosis or neural foraminal narrowing. IMPRESSION: Fusion of C5-C6. Multilevel degenerative disc disease with areas of neural foraminal narrowing. No focal disc protrusion or significant central canal stenosis. Reviewed, Interpreted and Dictated by Mario Cheung III, MD Transcribed by Aba Faustin Authenticated and . [facility]
== END ==
PROVIDERS: PCP Physician Assistant; Visit Provider Physician Assistant
DX: R13.10 Dysphagia, unspecified (principal); R49.0 Dysphonia; M54.2 Cervicalgia
CPT/HCPCS: 72141; 74220; 76376

== ENCOUNTER 2022-07-19 09:00 | Outpatient (RCR) | payer OTHER, SELFPAY | END 2022-07-19 09:05 | disposition home or self-care (01) | LOC: PT 09:00 | PROVIDERS: PCP Physician Assistant; Visit Provider Physician Assistant | DX: M54.2 Cervicalgia (principal) | CPT/HCPCS: 97110; 97140; 97163 ==

== ENCOUNTER 2022-08-01 10:12 | Day surgery (SDC) | payer OTHER, SELFPAY ==
[2022-07-30 14:01] VITALS: BMI 26.7
[2022-08-01] VITALS (8 sets, daily range): BP systolic 94–146; BP diastolic 53–88; PULSE 53–70; RESP 16–18; TEMP 36.4–36.6; O2SAT 92–99
--- NOTE | 2022-08-01 10:42 | P.PN_ITS ---
[facility] Disclaimer: The information contained in this section may have been updated after the patient was seen, as this information can be updated by other users. Medical History Arthralgia of left hand Back Pain Benign prostatic hyperplasia with hesitancy Cervical lymphadenitis DDD (degenerative disc disease), lumbar DDD (degenerative disc disease), lumbar Degenerative disc disease Dysphagia Dysphonia Fusion of spine of cervical region Gastro-esophageal reflux disease without esophagitis Insomnia Lumbar disc disease with radiculopathy Lumbar disc disease with radiculopathy Lumbar disc disease with radiculopathy Nasal congestion Neck pain Peyronie's disease Tobacco abuse Surgical History History of fusion of cervical spine History of lumbar fusion History of lumbar laminectomy Family History Other Colon cancer Family history of cancer Social History Smoking Status: Current every day smoker tobacco type: e-cigarettes alcohol intake: current substance use type: marijuana current occupational status: other Travel in the last 8 weeks: None household members: none housing: house caffeine: Yes [facility] Anesthesia Checklist Patient Identification Patient Identification: Arm Band and Verbal (Name & ) Structural Data Admitted From: Home Planned Operative Procedure/s: EGD Consent for Planned Operative Procedure(s) Verified: Yes NPO Status Verified Time NPO: 00:00 Airway Assessment C-Spine Mobility Assessed: Yes TMJ Mobility Assessed: Yes Dentition: Good Dentition Neurological Assessment Level of Consciousness: Awake Hx Seizures: No Numbness or tingling in extremities: No Anesthesia Plan Anesthesia Risk discussed: Yes Anesthesia Plan: Verified ASA Class: II Anesthesia Type: MAC
--- NOTE | 2022-08-01 10:59 | P.PCN_ITS ---
Procedure: Date: 08/01/22 Patient Date of :: 1960 Procedure Performed:: EGD Indications:: The patient is a 62 year old who is being seen today dysphagia symptom. He has had a recent barium swallow study that showed narrowing of the distal esophagus with delay passage of the barium tablet. The patient has a history of hiatal hernia surgery. He has also been recently evaluated by ENT for dysphagia sympt oms of an oropharyngeal complaint. Performing Provider:: Eliu Yan MD Referring Provider:: Kristine Pepe APRn Sedation:: See RN records Procedure:: The gastroscope was gently passed through the incisoral orifice into the oral cavity and under direct visualization the esophagus was intubated. The endoscope was passed down the esophagus, through the stomach, and into the duodenum. Color, texture, mucosa, and anatomy of the esophagus, stomach, and duodenum were carefully examined with the scope. Findings:: Oropharynx: normal Esophagus: Somewhat tortuous distal esophagus with benign appearing narrowing just above the GE junction. Empiric dilatation was performed with 56F bougie dilator EG Junction: Irregular z-line Cardia: Appearance of antireflux surgery wrap Fundus: normal Body: Bilous fluid Antrum: normal Duodenal bulb: normal Duodenum (second and third portion): normal Impression: Tortuous distal esophagus with benign appearing narrowing above GE junction Surgical changes of hiatal hernia wrap in upper stomach Recommendations:: Return for EGD as needed Complications:: None Estimated blood obtained (mL): 0
== END 2022-08-01 12:00 | disposition home or self-care (01) ==
PROVIDERS: PCP Physician Assistant; Referring Provider Student in an Organized Health Care Education/Training Program; Visit Provider Internal Medicine
PROC: 0DJ08ZZ Inspection of Upper Intestinal Tract, Via Natural or Artificial Opening Endoscopic (ICD-10-PCS; CPT 43235; principal; 2022-08-01 11:30)
DX: K21.9 Gastro-esophageal reflux disease without esophagitis (principal); R13.10 Dysphagia, unspecified; F17.210 Nicotine dependence, cigarettes, uncomplicated
CPT/HCPCS: 43248

== ENCOUNTER 2022-09-03 16:56 | Emergency (ER) | payer OTHER, SELFPAY ==
[2022-09-03 17:00] VITALS: BP 122/73; PULSE 63; RESP 21; TEMP 37.1; O2SAT 97; BMI 26.7
[2022-09-03 17:15] VITALS: BP 122/73; PULSE 63; RESP 21; TEMP 37.1; O2SAT 97
--- NOTE | 2022-09-03 17:22 | EXP.UTC ---
Discharge Plan Disposition Patient Disposition: Home, Self-Care Condition: Good Prescriptions Prescriptions: New amoxicillin [amoxicillin] 875 mg tablet 875 mg PO Q12H Qty: 20 0RF benzonatate [benzonatate] 100 mg capsule 100 mg PO TIDP PRN (Reason: Cough) Qty: 30 0RF methylprednisolone 4 mg Tablets,Dose Pack 4 mg PO DIRECTED Qty: 21 0RF No Action sildenafil 100 mg tablet 100 mg PO DAILY Label Comments: TAKE 1 TABLET BY MOUTH ONCE DAILY NEEDED hydrocodone-acetaminophen 10-325 mg tablet 1 tab PO Q6H PRN (Reason: pain) Qty: 120 0RF temazepam [Restoril] 30 mg capsule 30 mg PO QHS PRN (Reason: sleep) Qty: 30 0RF omeprazole 40 mg capsule,delayed release(DR/EC) See Rx Instructions .ROUTE .COMPLEX Rx Instructions: TAKE ONE CAPSULE BY MOUTH EVERY DAY doxazosin 8 mg tablet See Rx Instructions .ROUTE .COMPLEX Rx Instructions: TAKE ONE TABLET BY MOUTH EVERY DAY AT BEDTIME tamsulosin 0.4 mg capsule 0.4 mg PO HS mirtazapine 45 mg tablet See Rx Instructions .ROUTE .COMPLEX Rx Instructions: TAKE ONE TABLET BY MOUTH EVERY DAY albuterol sulfate [ProAir HFA] 90 mcg/actuation HFA aerosol inhaler See Rx Instructions .ROUTE .COMPLEX Rx Instructions: INHALE TWO PUFFS BY MOUTH EVERY 6 HOURS (administer with spacer) fluticasone propionate 50 mcg/actuation spray,suspension See Rx Instructions .ROUTE .COMPLEX Rx Instructions: INSTILL 1 SPRAY IN EACH NOSTRIL TWICE DAILY Linzess 145 mcg capsule See Rx Instructions .ROUTE .COMPLEX Rx Instructions: TAKE ONE CAPSULE BY MOUTH EVERY DAY Referrals Follow up/Referrals: Kristine Pepe PA [Primary Care Provider] - See instructions Activity Restrictions/Add. Instructions Additional Instructions/Restrictions: Drink plenty of fluids. Take tylenol or ibuprofen for pain or fever. Take the medications as directed. Follow up with your regular doctor. GO TO THE ER FOR ANY WORSENING SYMPTOMS Clinical Impressions Clinical Impression: Sinusitis, Bronchitis, Acute viral syndrome Instructions Patient Instructions: DI for Sinusitis, DI for Viral Syndrome Discharge ED Provider: Kyle Mullen [facility] General Stated complaint: Wants covid tested,Coughing Mode of Arrival: Ambulatory Source of Information: Patient Limitations: No Limitations Time Seen by Provider: 09/03/22 17:22 Description of Symptoms (Recalled from Triage Doc. by RN): PATIENT C/O COUGH, NASAL CONGESTION, AND LETHARGY X 3 DAYS HEENT Symptoms (Recalled from RN notes): No Resp Symptoms (Recalled from RN notes): No Skin Symptoms (Recalled from RN notes): No MS Symptoms (Recalled from RN notes): No Functional Status (Recalled from RN notes): WNL History of Present Illness Provider Complaint: He states that for the past 2 days he has had fever, chills, chest congestion, and sinus congestion. Related Data Home Medications Medication Instructions Recorded Confirmed sildenafil 100 mg tablet 100 mg PO DAILY . 10/30/21 07/02/22 albuterol sulfate 90 mcg/actuation See Rx Instructions .Route 08/01/22 aerosol inhaler (ProAir HFA) .COMPLEX . doxazosin 8 mg tablet See Rx Instructions .Route 08/01/22 .COMPLEX . fluticasone propionate 50 See Rx Instructions .Route 08/01/22 mcg/actuation nasal .COMPLEX . spray,suspension linaclotide 145 mcg capsule See Rx Instructions .Route 08/01/22 (Linzess) .COMPLEX . mirtazapine 45 mg tablet See Rx Instructions .Route 08/01/22 .COMPLEX . omeprazole 40 mg capsule,delayed See Rx Instructions .Route 08/01/22 release .COMPLEX GERD tamsulosin 0.4 mg capsule 0.4 mg PO HS prostate 08/01/22 Previous Rx's Medication Instructions Recorded hydrocodone 10 mg-acetaminophen 1 tab PO Q6H PRN pain #120 tabs 07/11/22 325 mg tablet temazepam 30 mg capsule (Restoril) 30 mg PO QHS PRN sleep #30 caps 08/13/22 amoxicillin 875 mg tablet 875 mg
== END 2022-09-03 17:45 | disposition home or self-care (01) ==
PROVIDERS: Emergency Provider Nurse Practitioner Family; PCP Physician Assistant
DX: J32.9 Chronic sinusitis, unspecified (principal); J40 Bronchitis, not specified as acute or chronic; B34.9 Viral infection, unspecified
CPT/HCPCS: 99212; 99214; C9803; G0463; U0003; U0005

== ENCOUNTER → 2022-10-08 13:48 | Outpatient (CLI) | payer OTHER, SELFPAY ==
[2022-10-08 14:40] LABS: Basophils # 0.1 K/mm3 (0-0.2); Basophils % 0.8 % (0.1-2.0); Eosinophils # 0.1 K/mm3 (0.0-0.4); Eosinophils % 2.1 % (0.1-12.0); Hematocrit 43.3 % (42.0-52.0); Hemoglobin 14.2 g/dL (14.1-18.0); Lymphocytes # 1.5 K/mm3 (0.7-4.5); Mean Corpuscular HGB Conc 32.9 g/dL (31.8-35.4); Mean Corpuscular Hemoglobin 28.8 pg (27.0-31.2); Mean Corpuscular Volume 87.7 fl (80-94); Mean Platelet Volume 8.3 fl (7.4-10.4); Monocytes # 0.6 K/mm3 (0.1-1.0); Monocytes % 9.5 % (1.7-9.3); Neutrophils # 4.1 K/mm3 (1.8-7.8); Neutrophils % 63.7 % (37.0-80.0); Platelet Count 279 K/mm3 (142-424); Red Blood Count 4.94 M/mm3 (4.60-6.20); Red Cell Distribution Width 14.5 % (11.5-17.5); White Blood Count 6.4 K/mm3 (4.8-10.8)
[2022-10-08 15:03] LABS: Alanine Aminotransferase 23 U/L (12-78); Albumin Level 4.1 g/dl (3.5-5.0); Albumin/Globulin Ratio 1.6 (1.1-1.8); Alkaline Phosphatase 111 U/L (38-126); Anion Gap 10.6 mEq/L (5-15); Aspartate Amino Transferase 35 U/L (17-59); Bilirubin,Total 0.6 mg/dl (0.2-1.3); Blood Urea Nitrogen 16 mg/dl (9-20); Calcium 8.9 mg/dl (8.4-10.2); Carbon Dioxide 29 mmol/L (22.0-30.0); Chloride 100 mmol/L (98-107); Chol/HDL Ratio 6.4 (1-3.5); Cholesterol 185 mg/dl (140-200); Estimated Glomerular Filt Rate 99 ml/min (>60); GFR (African American) 119 ML/MIN (>60); Globulin 2.6 g/dL (1.3-3.2); Glucose 107 mg/dl (74-100); HDL Cholesterol 29 mg/dl (40-60); Potassium 4.6 mmoL/L (3.5-5.1); Sodium 135 mmol/L (136-145); Total Protein,Serum 6.7 g/dl (6.3-8.2); Triglycerides 234 mg/dl (30-150); VLDL Cholesterol 47 mg/dL (0-40)
[2022-10-08 15:14] LABS: Direct LDL Cholesterol 106.86 mg/dL (100-129)
[2022-10-08 15:20] LABS: 25-OH Vitamin D, Total 32.7 ng/mL (30-100)
[2022-10-08 15:33] LABS: Thyroid Stimulating Hormone 2.39 uIU/mL (0.465-4.68)
== END ==
PROVIDERS: PCP Physician Assistant; Visit Provider Physician Assistant
DX: Z00.00 Encounter for general adult medical examination without abnormal findings (principal); Z79.899 Other long term (current) drug therapy
CPT/HCPCS: 80053; 80061; 82306; 84443; 85025

== ENCOUNTER → 2022-10-29 13:41 | Outpatient (CLI) | payer OTHER, SELFPAY | PROVIDERS: PCP Physician Assistant; Visit Provider Physician Assistant | DX: R40.0 Somnolence (principal); G47.33 Obstructive sleep apnea (adult) (pediatric); R06.83 Snoring | CPT/HCPCS: G0399 ==

== ENCOUNTER 2022-11-07 07:32 | Day surgery (SDC) | payer OTHER, SELFPAY ==
[2022-11-07] VITALS (7 sets, daily range): BP systolic 95–123; BP diastolic 59–75; PULSE 56–62; RESP 16–18; TEMP 36.1–36.3; O2SAT 94–98; BMI 25.5
--- NOTE | 2022-11-07 08:47 | P.PN_ITS ---
[facility] Disclaimer: The information contained in this section may have been updated after the patient was seen, as this information can be updated by other users. Medical History Arthralgia of left hand Back Pain Benign prostatic hyperplasia with hesitancy Cervical lymphadenitis DDD (degenerative disc disease), lumbar DDD (degenerative disc disease), lumbar Degenerative disc disease Dysphagia Dysphonia Fusion of spine of cervical region Gastro-esophageal reflux disease without esophagitis Insomnia Lumbar disc disease with radiculopathy Lumbar disc disease with radiculopathy Lumbar disc disease with radiculopathy Nasal congestion Neck pain Peyronie's disease Prostate disorder Tobacco abuse Tuberculosis Surgical History History of cholecystectomy History of fusion of cervical spine History of lumbar fusion History of lumbar laminectomy History of tonsillectomy Hx of prostatectomy Family History Other Colon cancer Family history of cancer Social History Smoking Status: Former smoker quit date: 10/16/22 alcohol intake: never substance use type: marijuana current occupational status: retired and other Travel in the last 8 weeks: [place] adopted: No caregiver/support person: No foster care: No household members: none housing: house lives independently: Yes marital status: education level: college service: Yes longterm: No caffeine: Yes special audar needs: No agree to transfusion: No do you feel safe at home: Yes victim of physical abuse: No victim of emotional abuse: No victim of sexual abuse: No would you like helpful sources: No [facility] Anesthesia Checklist Patient Identification Patient Identification: Arm Band and Verbal (Name & ) Structural Data Admitted From: Home Planned Operative Procedure/s: Colonoscopy Verified Documents: Surgical Consent NPO Status Verified Time NPO: 02:30 Airway Assessment C-Spine Mobility Assessed: Yes TMJ Mobility Assessed: Yes Dentition: Partials Neurological Assessment Level of Consciousness: Awake, Alert and Appropriate Anesthesia Plan Anesthesia Risk discussed: Yes ASA Class: II Anesthesia Type: MAC
--- NOTE | 2022-11-07 09:24 | HMH.SCOPE ---
Procedure: Date: 11/07/22 Patient Date of :: 1960 Procedure Performed:: Colonoscopy Indications:: Screening colonoscopy Performing Provider:: Eliu Yan MD Referring Provider:: Kristine Pepe APRN Sedation:: See RN records Procedure:: After placing the patient in the left lateral decubitus position, the colonoscopy was gently inserted into the rectum and under direct visualization advanced to the cecum which was identified by transillumination in the right lower quadrant, identification of the ileocecal valve, appendiceal orifice, and cecal strap. Color, texture, mucosa, and anatomy of the colon were carefully examined with the scope. Findings:: Anal canal: normal Rectum: normal Sigmoid colon: fair preparation Descending colon: Polyp less than 10 mm in size. Removed with cold snare polypectomy Splenic flexure: normal Transverse colon: fair preparation Hepatic flexure: fair preparation Ascending colon: Polyp less than 10 mm in size. Removed with cold snare polypectomy Cecum: fair preparation Impression: Polyps x 10 (both less than 10 mm in size) Redundant sigmoid colon Fair bowel preparation Recommendations:: Await pathology results Repeat colonoscopy in 3 years Complications:: None Estimated blood obtained (mL): 0
== END 2022-11-07 10:22 | disposition home or self-care (01) ==
PROVIDERS: PCP Physician Assistant; Visit Provider Internal Medicine
PROC: 0DJD8ZZ Inspection of Lower Intestinal Tract, Via Natural or Artificial Opening Endoscopic (ICD-10-PCS; CPT 45378; principal; 2022-11-07 09:00)
DX: Z12.11 Encounter for screening for malignant neoplasm of colon (principal); D12.2 Benign neoplasm of ascending colon; D12.4 Benign neoplasm of descending colon; Z79.899 Other long term (current) drug therapy
CPT/HCPCS: 45385

== ENCOUNTER 2023-07-31 12:40 | Outpatient (CLI) | payer OTHER, SELFPAY ==
[2023-07-31 15:49] LABS: Amphetamine/Metha Screen,Urine Negative ng/ml (<1000)
[2023-07-31 15:50] LABS: Barbiturates Screen,Urine Negative ng/ml (<200); Benzodiazepines Screen,Urine Negative ng/ml (<200)
[2023-07-31 15:51] LABS: Cannabinoid Screen,Urine Negative ng/ml (<50)
[2023-07-31 15:52] LABS: Cocaine Screen,Urine Negative ng/ml (<300); Methadone Screen,Urine Negative ng/ml (<300)
[2023-07-31 15:55] LABS: Opiate Screen,Urine Positive ng/ml (<300)
[2023-07-31 15:56] LABS: Phencyclidine Screen,Urine Negative ng/ml (<25)
== END 2023-07-31 23:59 ==
LOC: LAB.DROPOF 12:40
PROVIDERS: PCP Physician Assistant; Visit Provider Physician Assistant
DX: Z79.899 Other long term (current) drug therapy (principal)
CPT/HCPCS: 80307

== ENCOUNTER 2023-09-02 14:51 | Outpatient (POV) | payer OTHER, SELFPAY | END 2023-09-02 23:59 | disposition home or self-care (01) | LOC: SC 14:52 | PROVIDERS: Visit Provider Specialist/Technologist | DX: Z00.00 Encounter for general adult medical examination without abnormal findings (principal) ==

== ENCOUNTER 2023-12-03 13:10 | Outpatient (CLI) | payer OTHER, SELFPAY ==
[2023-12-03 13:28] LABS: Basophils % 0.8 % (0.1-2.0); Eosinophils # 0.1 K/mm3 (0.0-0.4); Eosinophils % 2.1 % (0.1-12.0); Hematocrit 41.2 % (42.0-52.0); Hemoglobin 13.8 g/dL (14.1-18.0); Lymphocytes # 1.3 K/mm3 (0.7-4.5); Lymphocytes % 34.2 % (10-50); Mean Corpuscular HGB Conc 33.4 g/dL (31.8-35.4); Mean Corpuscular Hemoglobin 29.7 pg (27.0-31.2); Mean Corpuscular Volume 88.7 fl (80-94); Mean Platelet Volume 7.7 fl (7.4-10.4); Monocytes # 0.3 K/mm3 (0.1-1.0); Monocytes % 8.3 % (1.7-9.3); Neutrophils # 2.1 K/mm3 (1.8-7.8); Neutrophils % 54.7 % (37.0-80.0); Platelet Count 191 K/mm3 (142-424); Red Blood Count 4.64 M/mm3 (4.60-6.20); Red Cell Distribution Width 14.4 % (11.5-17.5); White Blood Count 3.8 K/mm3 (4.8-10.8)
[2023-12-03 14:00] LABS: Alanine Aminotransferase 29 U/L (12-78); Albumin Level 4.1 g/dl (3.5-5.0); Albumin/Globulin Ratio 1.6 (1.1-1.8); Alkaline Phosphatase 87 U/L (38-126); Aspartate Amino Transferase 42 U/L (17-59); Bilirubin,Total 0.6 mg/dl (0.2-1.3); Blood Urea Nitrogen 20 mg/dl (9-20); Calcium 9.5 mg/dl (8.4-10.2); Carbon Dioxide 26 mmol/L (22.0-30.0); Chloride 104 mmol/L (98-107); Chol/HDL Ratio 5.8 (1-3.5); Cholesterol 193 mg/dl (140-200); Estimated Glomerular Filt Rate 86 ml/min (>60); GFR (African American) 104 ML/MIN (>60); Globulin 2.6 g/dL (1.3-3.2); Glucose 103 mg/dl (74-100); HDL Cholesterol 33 mg/dl (40-60); Sodium 140 mmol/L (136-145); Total Protein,Serum 6.7 g/dl (6.3-8.2); Triglycerides 353 mg/dl (30-150); VLDL Cholesterol 71 mg/dL (0-40)
[2023-12-03 14:11] LABS: Direct LDL Cholesterol 98.41 mg/dL (100-129)
[2023-12-03 14:19] LABS: 25-OH Vitamin D, Total 43.3 ng/mL (30-100)
[2023-12-03 14:32] LABS: Prostate Specific Ag Screen 0.4 ng/ml (0.0-4.0); Thyroid Stimulating Hormone 2.38 uIU/mL (0.465-4.68)
[2023-12-03 14:51] LABS: Vitamin B12 354 pg/mL (239-931)
== END 2023-12-03 23:59 | disposition home or self-care (01) ==
LOC: LAB 13:13
PROVIDERS: PCP Physician Assistant; Visit Provider Physician Assistant
DX: G89.4 Chronic pain syndrome (principal); M48.02 Spinal stenosis, cervical region; M54.16 Radiculopathy, lumbar region; M25.511 Pain in right shoulder; Z79.899 Other long term (current) drug therapy; Z12.5 Encounter for screening for malignant neoplasm of prostate
CPT/HCPCS: 36415; 80053; 80061; 82306; 82607; 84443; 85025; G0103

== ENCOUNTER 2023-12-19 10:30 | Outpatient (CLI) | payer OTHER, SELFPAY ==
--- NOTE | 2023-12-19 10:33 | XR_ITS ---
FINAL REPORT CLINICAL HISTORY: right shoulder pain radiates up into neck radiates down arm numbness and tingling in hand FINDINGS: Right shoulder Five views were obtained. There is no acute fracture or dislocation. The joint spaces appear normal. No soft tissue abnormality is identified. IMPRESSION: No acute process. Reviewed, Interpreted and Dictated by Mario Cheung III, MD Transcribed by Steph Perez Authenticated and [facility]
== END 2023-12-19 23:59 | disposition home or self-care (01) ==
LOC: RAD 10:30
PROVIDERS: PCP Physician Assistant; Visit Provider Physician Assistant
DX: M25.511 Pain in right shoulder (principal)
CPT/HCPCS: 73030

== ENCOUNTER 2024-01-02 12:06 | Day surgery (SDC) | payer OTHER, SELFPAY ==
[2023-12-31 13:03] VITALS: BMI 26.7
[2024-01-02] MEDS: LACTATED RINGERS 1000ML 1,000 ML 25 ML IV (13:11)
[2024-01-02 13:18] VITALS: BP 127/70; PULSE 50; RESP 18; TEMP 36.4; O2SAT 95
--- NOTE | 2024-01-02 14:03 | P.PNANES_ITS ---
[facility] Disclaimer: The information contained in this section may have been updated after the patient was seen, as this information can be updated by other users. Medical History Otalgia of both ears Otitis externa of left ear SNHL (sensorineural hearing loss) Moderate High Frequency SNHL bilaterally per Audiometric History of Otero's esophagus Unexplained weight loss Reports unexplained weight loss over the last year, amount unknown, accompanied with decreased appetite, feeling like food may be stuck. Differential diagnoses reviewed including but not limited to esophageal cancer. Patient agrees to follow-up with PCP AURA for further evaluation. History of tobacco abuse History of melanoma History of prostate cancer Left serous otitis media Hearing loss Tinnitus Otalgia, left ear Tuberculosis Prostate disorder Dysphonia Nasal congestion Dysphagia Tobacco abuse Cervical lymphadenitis Lumbar disc disease with radiculopathy DDD (degenerative disc disease), lumbar Degenerative disc disease DDD (degenerative disc disease), lumbar Lumbar disc disease with radiculopathy Peyronie's disease Benign prostatic hyperplasia with hesitancy Arthralgia of left hand Gastro-esophageal reflux disease without esophagitis Insomnia On Restoril 30 mg p.o. nightly. Fusion of spine of cervical region Lumbar disc disease with radiculopathy Neck pain Back Pain Surgical History Hx of prostatectomy History of tonsillectomy History of cholecystectomy History of lumbar laminectomy History of lumbar fusion History of fusion of cervical spine Family History Other Colon cancer Family history of cancer Social History Smoking Status: Former smoker alcohol intake: never substance use type: marijuana current occupational status: retired and other Travel in the last 8 weeks: None adopted: No caregiver/support person: No foster care: No household members: none housing: house lives independently: Yes marital status: education level: college service: Yes residential: No caffeine: Yes special audra needs: No agree to transfusion: No do you feel safe at home: Yes victim of physical abuse: No victim of emotional abuse: No victim of sexual abuse: No would you like helpful sources: No [facility] Anesthesia Checklist Patient Identification Patient Identification: Arm Band Structural Data Admitted From: Home Planned Operative Procedure/s: EGD Consent for Planned Operative Procedure(s) Verified: Yes Verified Documents: Surgical Consent and History and Physical NPO Status Verified Time NPO: 00:00 Additional verifications Anesthesia Reactions: No Airway Assessment Mallampati Score:: Class II C-Spine Mobility Assessed: Yes TMJ Mobility Assessed: Yes Dentition: Good Dentition Neurological Assessment Level of Consciousness: Awake, Alert and Appropriate Anesthesia Plan Anesthesia Risk discussed: Yes Anesthesia Plan: Verified ASA Class: II Anesthesia Type: MAC
[2024-01-02 14:07] VITALS: O2SAT 95
[2024-01-02 14:28] VITALS: BP 144/83; PULSE 65; RESP 14; TEMP 36.8; O2SAT 95
--- NOTE | 2024-01-02 14:37 | HMH.SCOPE ---
Procedure: Date: 01/02/24 Patient Date of :: 1960 Procedure Performed:: EGD & dilation Indications:: Dysphagia, ? Hx of Barretts Performing Provider:: uZlly Chakraborty MD Referring Provider:: Marian Chakraborty APRN Sedation:: Propofol Procedure:: The gastroscope was gently passed through the incisoral orifice into the oral cavity and under direct visualization the esophagus was intubated. The endoscope was passed down the esophagus, through the stomach, and into the duodenum. Color, texture, mucosa, and anatomy of the esophagus, stomach, and duodenum were carefully examined with the scope. Findings:: Oropharynx: normal Esophagus: normal, no visual evidence of barretts mucosa, empiric dilation with 58F bougie EG Junction: intact at 40 cm, evidence of previous fundoplication wrap, intact Cardia: normal Fundus: normal Body: normal Antrum: normal Duodenal bulb: normal Duodenum (second and third portion): normal Impression: Symptomatic dysphagia treated with bougie dilation, most likely from previous surgery No current visual evidence of barretts Previous fundoplication anatomy Recommendations:: Consider repeat EGD evaluation in about Three years or so as needed, sooner if clinically indicated Complications:: None Estimated blood obtained (mL): 0 Colonoscopy Component Colonoscopy Component Was a colonoscopy performed during today's procedure?: No
[2024-01-02 14:38] VITALS: BP 144/90; PULSE 64; RESP 16; O2SAT 96
[2024-01-02 14:48] VITALS: BP 122/93; PULSE 61; RESP 18; O2SAT 98
[2024-01-02 14:58] VITALS: BP 143/91; PULSE 56; RESP 16; O2SAT 97
== END 2024-01-02 15:02 | disposition home or self-care (01) ==
PROVIDERS: PCP Physician Assistant; Visit Provider Internal Medicine Gastroenterology
PROC: 0DJ08ZZ Inspection of Upper Intestinal Tract, Via Natural or Artificial Opening Endoscopic (ICD-10-PCS; CPT 43235; principal; 2024-01-02 13:30)
DX: R13.10 Dysphagia, unspecified (principal); Z98.890 Other specified postprocedural states; Z87.19 Personal history of other diseases of the digestive system
CPT/HCPCS: 43248; J7120

== ENCOUNTER 2024-01-04 08:39 | Outpatient (CLI) | payer OTHER, SELFPAY ==
--- NOTE | 2024-01-04 08:40 | MR_ITS ---
FINAL REPORT TECHNIQUE: Multiplanar MR without gadolinium enhancement CLINICAL HISTORY: Rt Shoulder Pain COMPARISON: None FINDINGS: Marrow signal: Unremarkable Glenohumeral joint: A small effusion is present without significant degenerative change. Acromioclavicular joint: Mild heterotrophic change of the acromioclavicular joint. Mild rotator cuff impingement is present. Rotator cuff apparatus: Unremarkable Labrum: There is a tear involving the superior labrum which likely extends into the anterior labrum. The posterior labrum is intact. Biceps tendon: Unremarkable IMPRESSION: Tear involving the superior labrum which likely extends into the anterior labrum. The posterior labrum is intact. Reviewed, Interpreted and Dictated by Luis E Rosales MD Transcribed by Clara Bañuelos Authenticated and [facility]
== END 2024-01-04 23:59 | disposition home or self-care (01) ==
LOC: RAD 08:40
PROVIDERS: PCP Internal Medicine; Visit Provider Orthopaedic Surgery
DX: M79.601 Pain in right arm (principal); S46.911A Strain of unspecified muscle, fascia and tendon at shoulder and upper arm level, right arm, initial encounter
CPT/HCPCS: 73221

== ENCOUNTER 2024-02-10 11:29 | Outpatient (CLI) | payer OTHER, SELFPAY ==
--- NOTE | 2024-02-10 11:34 | XR_ITS ---
FINAL REPORT CLINICAL HISTORY: Foreign object in right foot COMPARISON: None FINDINGS: AP, oblique and lateral views of the right foot were obtained. There is no prior exam for comparison. There is no acute fracture or dislocation. The joint spaces are preserved. Soft tissues are normal. Specifically, no evidence of a radiopaque foreign body is identified. IMPRESSION: No acute osseous abnormality of the right foot. Reviewed, Interpreted and Dictated by Cindi Lama MD Transcribed by Clara Bañuelos Authenticated and [facility]
== END 2024-02-10 23:59 | disposition home or self-care (01) ==
LOC: RAD 11:31
PROVIDERS: PCP Physician Assistant; Visit Provider Podiatrist
DX: M79.674 Pain in right toe(s) (principal)
CPT/HCPCS: 73630

== ENCOUNTER 2024-06-18 08:17 | Outpatient (CLI) | payer OTHER, SELFPAY ==
[2024-06-18 08:52] LABS: Blood Urea Nitrogen 17 mg/dl (9-20); Estimated Glomerular Filt Rate 86 ml/min (>60); GFR (African American) 103 ML/MIN (>60)
== END 2024-06-18 23:59 | disposition home or self-care (01) ==
LOC: RAD 08:18
PROVIDERS: PCP Physician Assistant; Visit Provider Orthopaedic Surgery
DX: Z01.818 Encounter for other preprocedural examination (principal); M25.511 Pain in right shoulder; S43.431A Superior glenoid labrum lesion of right shoulder, initial encounter
CPT/HCPCS: 36415; 82565; 84520

== ENCOUNTER 2024-06-22 10:11 | Outpatient (CLI) | payer OTHER, SELFPAY ==
--- NOTE | 2024-06-22 10:11 | MR_ITS ---
FINAL REPORT CLINICAL HISTORY: pain FINDINGS: Multiplanar MR imaging of the right shoulder was performed after the intra-articular injection of dilute gadolinium solution. There is a partial-thickness articular surface tear of the distal supraspinatus tendon involving less than 50% of the thickness of the tendon. No full-thickness rotator cuff tear is identified. There is no evidence of contrast leakage from the glenohumeral joint to the subacromial/subdeltoid bursa. A small amount of fluid is present in the subacromial/subdeltoid bursa. There is mild AC joint arthrosis. There is contrast at the base of the superior labrum consistent with a SLAP tear. The long head of the biceps tendon is intact. There is no evidence of fracture. The musculature is intact. No soft tissue mass or cyst is identified. IMPRESSION: Abnormal appearance of the superior labrum consistent with a SLAP tear. Partial-thickness articular surface tear of the distal supraspinatus tendon. Authenticated and [facility]
--- NOTE | 2024-06-22 10:26 | IR_ITS ---
FINAL REPORT CLINICAL HISTORY: PAIN Dose: 3.13 Time: 0.18min FINDINGS: Right shoulder injection for MRI arthrogram HISTORY: . Right shoulder pain. Attending radiologist: Dr. Cheung Physician Php Programmer: Wally Jean PA-C PROCEDURE: After informed consent was obtained, a time-out was performed. Utilizing local anesthesia and sterile technique, with direct fluoroscopic guidance, access to the joint was obtained . A small amount of contrast was injected to confirm needle tip location. Additional gadolinium contrast was injected. IMPRESSION: Status post injection for MRI arthrogram without immediate complication. Please see MRI report. Fluoro time: 18 seconds Radiation exposure in Reference air Kerma: 3.13 mGy. Films reviewed , interpreted and dictated by Dr. Cheung. Transcribed by Wally Busch PA-C. Reviewed, Interpreted and Dictated by Mario Cheung III, MD Transcribed by RADHA Bates Authenticated and . [facility]
[2024-06-22] MEDS: SODIUM CHLORIDE 0.9% 10ML SYR (RAD ONLY) 10 ML IV (11:42)
[2024-06-22] MEDS: IOPAMIDOL 10 ML IV (11:42)
[2024-06-22] MEDS: LIDOCAINE 1% 10ML MDV IJ (11:42)
[2024-06-22] MEDS: GADOTERIDOL INJ 10ML SYRINGE IV (13:25)
== END 2024-06-22 23:59 | disposition home or self-care (01) ==
LOC: RAD 10:11
PROVIDERS: PCP Physician Assistant; Visit Provider Orthopaedic Surgery
DX: S43.431D Superior glenoid labrum lesion of right shoulder, subsequent encounter (principal)
CPT/HCPCS: 73040; 73222; A9576; Q9967

== ENCOUNTER 2024-08-05 11:52 | Outpatient (CLI) | payer OTHER, SELFPAY ==
--- NOTE | 2024-08-05 12:36 | ECG_ITS ---
APPROVED REPORT Exam: Resting ECG HR:57 bpm ECG Measurements Heart Rate 57 AXES [place] 168 P 65 QRSd 88 QRS 16 QT 392 T 49 QTc 387 Conclusion SINUS BRADYCARDIA BORDERLINE ECG UNCONFIRMED REPORT Electronically signed by : Surendra Hua MD 08/08/2024 21:01:52
[2024-08-05 12:42] VITALS: BMI 26.7
--- NOTE | 2024-08-05 12:47 | XR_ITS ---
FINAL REPORT TECHNIQUE: Chest PA & Lateral CLINICAL HISTORY: Right Shoulder Pain..pre-op..smoker COMPARISON: None FINDINGS: 2 views of the chest were performed. The heart size is normal. The mediastinum is within normal limits. There is no acute cardiopulmonary process. There are no pleural effusions. There is no pneumothorax. The bony thorax appears intact. IMPRESSION: No acute cardiopulmonary process. Reviewed, Interpreted and Dictated by Jose Angel Goff MD Transcribed by Clara Bañuelos Authenticated and [facility]
[2024-08-05 12:56] LABS: Basophils % 0.4 % (0.1-2.0); Eosinophils # 0.1 K/mm3 (0.0-0.4); Eosinophils % 1.7 % (0.1-12.0); Hematocrit 40.2 % (42.0-52.0); Hemoglobin 13.5 g/dL (14.1-18.0); Lymphocytes # 1.5 K/mm3 (0.7-4.5); Lymphocytes % 27.7 % (10-50); Mean Corpuscular HGB Conc 33.6 g/dL (31.8-35.4); Mean Corpuscular Volume 86.5 fl (80-94); Mean Platelet Volume 9.8 fl (7.4-10.4); Monocytes # 0.8 K/mm3 (0.1-1.0); Monocytes % 13.8 % (1.7-9.3); Neutrophils # 3.1 K/mm3 (1.8-7.8); Neutrophils % 56.2 % (37.0-80.0); Platelet Count 192 K/mm3 (142-424); Red Blood Count 4.65 M/mm3 (4.60-6.20); Red Cell Distribution Width 13.3 % (11.5-17.5); White Blood Count 5.4 K/mm3 (4.8-10.8)
[2024-08-05 13:05] LABS: Albumin Level 4.2 g/dl (3.5-5.0); Chloride 104 mmol/L (98-107); Sodium 138 mmol/L (136-145)
[2024-08-05 13:06] LABS: Potassium 4.2 mmoL/L (3.5-5.1)
[2024-08-05 13:08] LABS: Alanine Aminotransferase 26 U/L (12-78); Albumin/Globulin Ratio 1.6 (1.1-1.8); Alkaline Phosphatase 104 U/L (38-126); Anion Gap 10.2 mEq/L (5-15); Aspartate Amino Transferase 39 U/L (17-59); Bilirubin,Total 0.4 mg/dl (0.2-1.3); Blood Urea Nitrogen 18 mg/dl (9-20); Carbon Dioxide 28 mmol/L (22.0-30.0); Creatinine Clearance Estimated 108 mL/min (50-200); Estimated Glomerular Filt Rate 98 ml/min (>60); GFR (African American) 119 ML/MIN (>60); Globulin 2.7 g/dL (1.3-3.2); Total Protein,Serum 6.9 g/dl (6.3-8.2)
[2024-08-05 13:09] LABS: Calcium 9.3 mg/dl (8.4-10.2); Glucose 103 mg/dl (74-100)
== END 2024-08-05 23:59 | disposition home or self-care (01) ==
LOC: PREOP 11:53
PROVIDERS: PCP Physician Assistant; Visit Provider Orthopaedic Surgery
DX: Z01.811 Encounter for preprocedural respiratory examination (principal); M25.511 Pain in right shoulder; R00.1 Bradycardia, unspecified; R94.31 Abnormal electrocardiogram [ECG] [EKG]
CPT/HCPCS: 71046; 80053; 85025; 93005

== ENCOUNTER 2024-08-12 09:04 | Day surgery (SDC) | payer OTHER, SELFPAY ==
[2024-08-12] VITALS (13 sets, daily range): BP systolic 119–145; BP diastolic 57–81; PULSE 50–60; RESP 14–18; TEMP 36.1–43; O2SAT 93–97; BMI 26.7
[2024-08-12] MEDS: LACTATED RINGERS 1000ML 1,000 ML 100 ML IV (09:58)
--- NOTE | 2024-08-12 10:14 | P.PNANES_ITS ---
[facility] Disclaimer: The information contained in this section may have been updated after the patient was seen, as this information can be updated by other users. Medical History Tobacco use disorder, continuous We have urged him to discontinue his smoking habit. Sleep-disordered breathing I think he likely has some upper airway obstruction which causing some uvular swelling. I have recommended using a humidifier at night to see if this might reduce some of the edema Pain of right great toe Otalgia of both ears Otitis externa of left ear SNHL (sensorineural hearing loss) Moderate High Frequency SNHL bilaterally per Audiometric History of Otero's esophagus Unexplained weight loss Reports unexplained weight loss over the last year, amount unknown, accompanied with decreased appetite, feeling like food may be stuck. Differential diagnoses reviewed including but not limited to esophageal cancer. Patient agrees to follow-up with PCP AURA for further evaluation. History of tobacco abuse History of melanoma History of prostate cancer Left serous otitis media Hearing loss Tinnitus Otalgia, left ear Tuberculosis Prostate disorder Dysphonia Nasal congestion Dysphagia Tobacco abuse Cervical lymphadenitis Lumbar disc disease with radiculopathy DDD (degenerative disc disease), lumbar Degenerative disc disease DDD (degenerative disc disease), lumbar Lumbar disc disease with radiculopathy Peyronie's disease Benign prostatic hyperplasia with hesitancy Arthralgia of left hand Gastro-esophageal reflux disease without esophagitis Insomnia On Restoril 30 mg p.o. nightly. Fusion of spine of cervical region Lumbar disc disease with radiculopathy Neck pain Back Pain Surgical History Hx of prostatectomy History of tonsillectomy History of cholecystectomy History of lumbar laminectomy History of lumbar fusion History of fusion of cervical spine Family History Other Colon cancer Family history of cancer Social History (Updated 08/12/24 @ 09:53 by Veena Gorman RN) Smoking Status: Current every day smoker alcohol intake: never substance use type: marijuana current occupational status: unemployed Travel in the last 8 weeks: None adopted: No caregiver/support person: No foster care: No household members: none housing: house lives independently: Yes marital status: education level: college service: Yes chcf: No caffeine: Yes special audra needs: No agree to transfusion: No do you feel safe at home: Yes victim of physical abuse: No victim of emotional abuse: No victim of sexual abuse: No would you like helpful sources: No Have you lived/traveled outside [place] in past 30 days?: No Contact w/someone who lives/traveled outside US past 30 days?: No Exposure to someone with infectious disease in past 14 days?: No Do you have a fever (greater than 100.4 F or 38 C)?: No Have you tested positive for COVID-19: Yes Exposed to someone with COVID-19 in past 14 days?: No Do you have a sore throat?: No Do you have a cough?: No Do you have any weakness?: No Are you experiencing any nausea/vomitting?: No Do you have any diarrhea?: No Are you experiencing any unusual bleeding?: No Do you have any muscle aches/pain?: No Do you have any abdominal pain?: No Are you experiencing loss of taste or smell?: No [facility] Anesthesia Checklist Patient Identification Patient Identification: Arm Band Structural Data Admitted From: Home Planned Operative Procedure/s: Right Shoulder Arthroscopy, SLAP Repair, RCR Repair Consent for Planned Operative Procedure(s) Verified: Yes Verified Documents: Surgical Consent and History and Physical NPO Status Verified Time NPO: 00:00 Additional verifications Anesthesia Reactions: No Hx Blood Transfusions: No Blood Transfusion Reaction: No Airway Assessment Mallampati Score:: Class II C-Spine Mobility Assessed: Yes TMJ Mobility Assessed: Yes Dentition: Good Dentition Neurological Assessment Level of Consciousness: Awake, Alert and Appropriate Anesthesia Plan Anesthesia Risk discussed: Yes Anesthesia Plan: Verified ASA Class: II Anesthesia Type: General w/block (Right Interscalene Nerve Block. Risks/benefits explained. Pt verbalized understanding)
[2024-08-12] MEDS: EPINEPHrine 1MG/ML 30ML VIAL 30 MG ×2 (11:09→11:45)
[2024-08-12] MEDS: RINGERS SOLUTION,LACTATED 6,000 ML 6000 ML IR ×2 (11:09→11:45)
--- NOTE | 2024-08-12 12:25 | P.OP_ITS ---
Date of procedure: 08/12/24 Pre-op Diagnosis:: Right shoulder SLAP tear and rotator cuff tear Post-op Diagnosis:: Right shoulder SLAP tear Right shoulder near full-thickness rotator cuff tear Procedure performed:: 1. Right shoulder arthroscopy with rotator cuff repair 2. Right shoulder arthroscopy with superior labrum anterior to posterior repair (SL AP) Surgeon:: Mike Encinas DO Electronic Pagination System Operator(s):: Billy GARRISON ACCESS SPEC:: Kyle Siegel Anesthesia: GETA and regional Estimated blood loss (mL): 0 Operative findings:: See dictation Operative note:: Patient notified preoperatively. Right shoulder marked with yes my initials. Underwent regional block with anesthesia and then taken the operating room placed on operating bed. General anesthesia was administered and airway secured. Then placed in the lateral position with a beanbag. All bony prominences well-padded. Axillary roll placed. Right arm was then placed inline traction with the arm hinton. Right shoulder was then prepped and draped normal sterile fashion. Once prepped and draped final operative timeout performed to identify proper patient procedure and extremity. Everyone involved in the case agreed. There were no counter indications beginning. He did receive preoperative antibiotics. Marking pen was used to dimitri plan portals and bony landmarks of the shoulder. Skin knife is used to incise standard posterior viewing portal and blunt with trocar was placed in the glenohumeral joint. Within the glenohumeral joint removed directly anteriorly above the subscapularis tendon where the anterior working portal was made and switch with a purple cannula. Diagnostic arthroscopy began. Attention was then brought to the labrum there was fraying of the anterior labrum and unstable detachment of the superior labrum anterior to posterior. Debridement of the frayed tissue was performed with sucker shaver rasp was used to grasp the footprint for repair of the labrum to the glenoid. Then in st andard fashion starting anteriorly post lock anchors were placed to repair the SLAP lesion anterior posterior to the biceps tendon. Once this complete was probed there was some mild fraying of the biceps tendon but the biceps tendon itself was intact this fraying of the biceps tendon was debrided it was less than 10% of the tendon. Attention is then brought to the undersurface the rotator cuff there was thinning of the rotator cuff from the articular surface. Tensions then brought the subacromial space within the subacromial space there was some mild subacromial bursa which was debrided the cannulas were directed into the subacromial space and a lateral cannula was made after guidance with an 18-gauge spinal needle. Attention was then brought to the footprint of the rotator cuff it was very thin and then nearly fully torn at the footprint of the rotator cuff so soft tissue was debrided and the tissue elevator was utilized to complete tear of the supraspinatus tendon then using a speed fix method fiber tape was placed through the rotator cuff and into a anchor 4.75 swivel lock. This completed repair of the rotator cuff there was not significant downsloping of the acromion. Final drive-through the shoulder showed no further pathology the camera was removed the joint was drained skin closed with nylon stitches sterile dressing placed patient placed in the pillow and sling taken recovery stable condition. Condition: stable Disposition: PACU Complications:: None apparent
--- NOTE | 2024-08-12 12:25 | EXP.ANES.I ---
[facility] Anesthesia Record Part I Anesthesia Record I Intake, IV Amount: 650 Hydration: Adequate Estimated blood loss (mL): 5 Urine output (mL): 0 Blood Products used (#): none Blood Pressure: 132/75 SaO2: 94 Pulse Rate: 60 Airway Patency: Patent Respiratory Rate: 14 Temperature: 97.2 F Patient is:: Drowsy and Stable Stable to PACU at:: 12:18
--- NOTE | 2024-08-12 15:13 | EXP.ANES.II ---
[facility] Anesthesia Record Part II Anesthesia Record Part II Discharge Time: 12:54 Destination: Surgical Day Care (OP Surgery) PACU nurse assessment reviewed?: Yes Patient Condition:: Good Anesthesia Complications:: None Swallowing reflex intact?: Yes Airway Patency: Patent Cyanosis?: No Blood Pressure: 137/63 SaO2: 95 Respiratory Rate: 16 Pulse Rate: 52 Temperature: 97 F Mental Status: Alert & Oriented Pain level:: 0 Nausea and/or vomitting:: None Intake, IV Amount: 0 Hydration: Adequate
== END 2024-08-12 13:30 | disposition home or self-care (01) ==
PROVIDERS: PCP Physician Assistant; Visit Provider Orthopaedic Surgery
PROC: (CPT 29805; principal; 2024-08-12 10:30)
DX: S43.431A Superior glenoid labrum lesion of right shoulder, initial encounter (principal); M75.111 Incomplete rotator cuff tear or rupture of right shoulder, not specified as traumatic
CPT/HCPCS: 29807; 29827; 96374; C1713; J0171; J0666; J1100; J2250; J2405; J3010; J7120

== ENCOUNTER 2024-10-28 07:52 | Outpatient (RCR) | payer OTHER, SELFPAY ==
--- NOTE | 2024-10-28 08:57 | HMH.OTOPEV ---
OT Inpatient Evaluation Rehab OT Outpatient Eval Start: 10/28/24 08:43 Freq: Status: Active Protocol: Document 10/28/24 08:43 RMARSHALL (Rec: 10/28/24 08:57 [id number] E-signed By Gio Butts, OT Outpatient Therapy Subjective History Subjective History Pt is a 64 year old male who reports to therapy for initial evaluation to right shoulder. Pt is currently 11 weeks s/p right RTC and SLAP repair ( arthroscopic). Pt presents to therapy still wearing sling, without abduction pillow. Pt complains of very limited motion and pain with movement of the right shoulder. Pt recently missed his follow up appointment with ortho. Therapist observes and palpates a clunking/clicking in right shoulder when patient attempts to complete AROM. Pt has very minimal movement with both abduction and flexion actively; therapist is able to get patient to ~100 degrees passively in both planes. Therapist educated patient on importance of rescheduling follow up appointment with ortho due to increased difficulty with movement; pt verbalized understanding. Therapist will continue to see patient twice a week in order to address right shoulder deficits. New diagnosis of cancer in past 12 No months? Chief Complaint Pain,Stiff,Weakness Symptom Type Ache,Throb,Dull Symptoms Relieved By Rest/Positioning Symptoms Aggravated By Physical Activity,Lifting Prior Functional Limitations None Current Functional Limitations Reaching,Lifting,Housework, Dressing,Sleeping,Recreation Activity Symptom Description Intermittent,Activity Dependent Level of pain today (0-10) 0 Pain scale - at its best (0-10) 0 Pain scale - at its worst (0-10) 7 Shoulder/Elbow Eval Shoulder Objective Measurements Shoulder ROM Right Shoulder Abduction Active Range of 45 degrees Motion (degrees) Shoulder Flexion Active Range of Motion 50 degrees (degrees) Query Text: Shoulder External Rotation Active Range 0 of Motion (degrees) Shoulder Internal Rotation Active Range 0 of Motion (degrees) Shoulder MMT Shoulder Abduction Strength Grade 3- Fair- Shoulder Flexion Strength Grade 3- Fair- Shoulder External Rotation Strength 3- Fair- Grade Shoulder Internal Rotation Strength 3- Fair- Grade Shoulder Strength Patient Testing Sitting Position Elbow Objective Measurements QuickDASH Activities Please rate your ability to do the following activities in the last week by selecting the number below the appropriate response. 1. Open a tight or new jar. Moderate difficulty 2. Do heavy shampoo technician (e.g., wash Moderate difficulty chang, floors). 3. Carry a shopping bag or briefcase. Moderate difficulty 4. Wash your back. Severe difficulty 5. Use a knife to cut food. Moderate difficulty 6. Recreational activities in which you Moderate difficulty take some force or impact through your arm, shoulder, or hand (e.g., golf, hammering, tennis, etc.). 7. During the past week, to what extent Moderately has your arm, shoulder or hand problem interfered with your normal social activities with family, friends, neighbors or groups? 8. During the past week, were you Moderately limited limited in your work or other regular daily activites as a result of your arm, shoulder or hand problem? 9. Arm, shoulder or hand pain. Moderate 10. Tingling (pins and needles) in your None arm, shoulder or hand. 11. During the past week, how much Mild difficulty difficulty have you had sleeping because of the pain in your arm, shoulder or hand? Quick DASH 31 OT Outpatient Assessment Impairments Problems/Impairments Palpation Tenderness,Impaired Range of Motion,Impaired Strength,Impaired Endurance, Impaired Lifting,Impaired Dressing,Impaired Shower/ Bathing,Impaired Household Care,Impaired Recreational Activities,Subjective C/O Pain Prognosis Rehab Potential Good Clinical Impression Consistent with Diagnosis Yes Short Term Goals Number of Weeks 4 Increase Range of Motion Yes: Flex: 90 Abd: 90 ER: 40 IR: 30 Increase Strength Yes: 3/5 throughout right shoulder Increase Endurance Yes: Pt will tolerate R shoulder exercises for ~20 minutes prior to rest. Decrease Subjective C/O Pain Yes: 5/10 at worst Patient to be Ind w/ HEP Yes: AROM/AAROM exercises; pulleys and wand Improve Quick Dash Score Yes: Activities: 25 or below Detention Goals Number of Weeks 8 Increase Range of Motion Yes: Flex: 120 Abd: 120 ER: 60 IR: 50 Increase Strength Yes: 3+/5 throughout right shoulder Increase Endurance Yes: Pt will tolerate R shoulder exercises for ~30 minutes prior to rest. Decrease Subjective C/O Pain Yes: 3/10 at worst Patient to be Ind w/ Advanced HEP Yes: Advanced strengthening exercises Improve Quick Dash Score Yes: Activities: 20 or below Outpatient Therapy Plan of Care Treatment Plan May Include Therapeutic Exercise Including Home Yes Exercise Program Manual Therapy Techniques Yes Neuromuscular Re-education Yes Therapeutic Activities to Return to Yes Previous Functional/Work Level ADL/Self Care Education Yes Dry Needling Yes Thermal Modalities Yes Electrical Stimulation Yes Ultrasound/Phonophoresis Yes Iontophoresis Yes Orthotics/Bracing/Splinting Yes Massage Yes Eval/Re-Eval Yes Frequency Times per week 2 Duration Number of Weeks 8 Addendums This patient is a candidate for social No or vocational rehab? Patient/Guardian verbally acknowledges Yes understanding of treatment program and consents to further treatment? Patient/Guardian verbally acknowledges Yes understanding of diagnosis, prognosis and goals for treatment? Eval Complexity OT Charge 16427 - Moderate Complexity PHYSICIAN CERTIFICATION: I certify the specified therapy services for Eliu Billy are required, authorized, and reviewed every 30 days.
== END 2024-10-28 23:59 | disposition home or self-care (01) ==
LOC: OT 07:52
PROVIDERS: PCP Physician Assistant; Visit Provider Orthopaedic Surgery
DX: M75.111 Incomplete rotator cuff tear or rupture of right shoulder, not specified as traumatic (principal)
CPT/HCPCS: 97166; 97530

== ENCOUNTER 2024-11-26 12:00 | Outpatient (CLI) | payer OTHER, SELFPAY ==
--- NOTE | 2024-11-26 12:03 | XR_ITS ---
FINAL REPORT CLINICAL HISTORY: rt shoulder pain COMPARISON: None FINDINGS: RIGHT SHOULDER 2 views demonstrate no acute fracture or dislocation. The visualized joint spaces are normally aligned. The soft tissues are unremarkable. IMPRESSION: No acute process. Reviewed, Interpreted and Dictated by Jose Angel Goff MD Transcribed by Clara Bañuelos Authenticated and [facility]
== END 2024-11-26 23:59 | disposition home or self-care (01) ==
LOC: RAD 12:00
PROVIDERS: PCP Physician Assistant; Visit Provider Physician Assistant Surgical
DX: M75.111 Incomplete rotator cuff tear or rupture of right shoulder, not specified as traumatic (principal)
CPT/HCPCS: 73030

== ENCOUNTER 2024-12-02 07:30 | Outpatient (CLI) | payer OTHER, SELFPAY ==
--- NOTE | 2024-12-02 07:33 | CT_ITS ---
FINAL REPORT TECHNIQUE: Axial CT without IV contrast administration using low dose protocol. Coronal and sagittal reconstructed images were obtained and reviewed. This study was performed with techniques to keep radiation doses as low as reasonably achievable, (ALARA). Individualized dose reduction techniques using automated exposure control or adjustment of mA and/or kV according to the patient's size were employed. CLINICAL HISTORY: SCREENING 1.5 packs per day for 30 years COMPARISON: 01/23/2022 FINDINGS: CT CHEST LOW DOSE SCREENING CTDI vol: 2.90 mGy, DLP: 108.90 mGy*cm There are numerous tiny lung nodules measuring 3 mm or less, which appear stable from prior exam. Some of these are calcified, all are stable compatible with old granulomatous disease. There are no new nodules evident. There is no intrathoracic adenopathy or effusion. Resolved right axillary adenopathy since prior exam. IMPRESSION: Stable numerous tiny lung nodules compatible with granulomas. LUNG RADS CATEGORY 2 RECOMMENDATION: 12 month LDCT follow up Reviewed, Interpreted and Dictated by Luis E Rosales MD Transcribed by Codi Longoria Authenticated and [facility]
== END 2024-12-02 23:59 | disposition home or self-care (01) ==
LOC: RAD 07:31
PROVIDERS: PCP Physician Assistant; Visit Provider Physician Assistant
DX: R91.8 Other nonspecific abnormal finding of lung field (principal); Z13.9 Encounter for screening, unspecified
CPT/HCPCS: 71271

== ENCOUNTER 2024-12-25 17:05 | Outpatient (CLI) | payer OTHER, SELFPAY ==
--- OUTSIDE RECORDS SUMMARY | 2024-12-25 17:07 | XMS_ITS | Encounter Summary ---
Author Organization Healthcare Address [address] [place] [address] Care Team Providers Care Nurse Practitioner Physicians Assistant Name Role Phone Clayton Story MD Primary Care Provider [phone] Encounter Details Date Type Department Care Team ([facility] st Contact Info) Description 07/11/2022 Orders Only External Location [address] [place] [address] Provider, External Social History Tobacco Use Types Packs/Day Years Used Date Smoking Tobacco: Former Alcohol Use Standard Drinks/Week Comments No 0 (1 standard drink = 0.6 oz pur e alcohol) Sex and Gender Information Value Date Recorded Sex Assigned at Not on file Legal Sex Male 8:42 PM EDT Gender Identity Not on file Sexual Orientation Not on file documented as of this encounter Plan of Treatment Not on file documented as of this encounter Procedures Procedure Name Priority Date/Time Associated Diagnosis Comments MR OUTSIDE IMAGES 07/11/2022 8:38 AM EST documented in this encounter Results * MR transfer of outside films (07/11/2022 8:38 AM EST) Anatomical Region Laterality Modality Magnetic Resonan ce 07/11/2022 8:38 AM EST us External Provider IMG MRI PROCEDURES Final Resul t documented in this encounter Visit Diagnoses Not on filedocumented in this encounter Care Teams Nurse Practitioner Physicians Assistant Relationship Specialty Start Date End Date Clayton Story MD [address] [place] [address] PCP - General 11/25/20 documented as of this encounter
--- OUTSIDE RECORDS SUMMARY | 2024-12-25 17:07 | XMS_ITS | Clinical Summary ---
Author Organization Healthcare [place] [address] Care Team Providers Care Scrap Separator Name Role Phone Clayton Story MD Primary Care Provider [phone] Allergies No known active allergies Medications Ventolin HFA 108 (90 Base) MCG/ACT inhaler INHALE 2 PUFFS BY MOUTH EVERY 6 HOURS (administer with spacer) 3 Active diclofenac (Voltaren) 75 MG EC tablet TAKE ONE TABLET BY MOUTH TWICE DAILY --TAKE WITH FOOD-- 2 Active doxazosin (Cardura) 8 MG tablet Take 8 mg by mouth every night. 3 Active HYDROcodone-vijaya taminophen ([place]) 10-325 MG tablet TAKE ONE TABLET BY MOUTH EVERY 6 HOURS NEEDED FOR PAIN MAY CAUSE DROWSINESS 2 Active ibuprofen 800 MG tablet TAKE ONE TABLET BY MOUTH EVERY 8 HOURS --TAKE WITH FOOD-- 2 Active Linzess 145 MCG capsule Take 145 mcg by mouth 1 (one) time each day. 3 Active mirtazapine (Remeron) 45 MG tablet Take 45 mg by mouth 1 (one) time each day. 3 Active omeprazole (PriLOSEC) [address] capsule Take 1 capsule 30 minutes prior to breakfast 5 Active oxybutynin XL (Ditropan-XL) 10 MG 24 hr tablet TAKE ONE TABLET BY MOUTH EVERY DAY 0 Active predniSONE (Deltasone) 20 MG tablet TAKE ONE TABLET BY MOUTH TWICE DAILY --TAKE WITH FOOD-- -- FINISH ALL MEDICINE -- 2 Active tamsulosin (Flomax) 0.4 MG 24 hr capsule Take 0.4 mg by mouth every night. 3 Active temazepam (Restoril) 30 MG capsule TAKE ONE CAPSULE BY MOUTH EVERY DAY AT BEDTIME NEEDED FOR SLEEP 2 Active TIZANIDINE HCL PO 9 Active fluticasone (Flonase) 50 MCG/ACT nasal spray 3 Active Family History Medical History Relation Name Comments Lung cancer Other 1 Breast cancer Other 2 Pancreatic cancer Other 3 Drug abuse Sibling 1 Alcohol abuse Sibling 2 Relation Name Status Comments Other 1 Other 2 Other 3 Sibling 1 Sibling 2 Social History Tobacco Use Types Packs/Day Years Used Date Smoking Tobacco: Never Smokeless Tobacco: Current Tobacco Cessation:Ready to Q uit: Not Asked; Counseling Given: Not Answered Comments:vape Alcohol Use Standard Drinks/Week Comments No 0 (1 standard drink = 0.6 oz pur e alcohol) Sex and Gender Information Value Date Recorded Sex Assigned at Not on file Legal Sex Male 8:42 PM EDT Gender Identity Not on file Sexual Orientation Not on file Last Filed Vital Signs Vital Sign Reading Time Taken Comments Blood Pressure 104/72 10/30/2022 1:40 PM EDT Pulse 90 08/14/2022 8:47 AM EST Temperature 36.7 C (98 F) 05/13/2019 1:13 PM EDT Respiratory Rate 18 08/14/2022 8:47 AM EST Oxygen Saturation 96% 08/14/2022 8:47 AM EST Inhaled Oxygen Concentration - - Weight 99.3 kg (219 lb) 10/30/2022 1:40 PM EDT Height 193 cm (6' 4 ) 10/30/2022 1:40 PM EDT Body Mass Index 26.66 10/30/2022 1:40 PM EDT Plan of Treatment Health Maintenance Due Date Last Done Comments [facility]-Depression Screening 1962 [facility]-Hepatitis C Screening 1962 [facility]-/Child/Adol SDOH Screenings 1962 [facility]- SDOH Screenings 02/07/1980 [facility]-Adult SDOH Screenings 02/07/1980 [facility]-DTaP,Tdap,and Td Vaccines (1 - Tdap) 1981 [facility]-Zoster Vaccines (1 of 2) 1981 Dental Prophylaxis 03/26/1994 09/22/1993 CT Colonography 2007 FIT-DNA 2007 FIT 2007 FOBT 2007 Sigmoidoscopy 2007 [facility]-Pneumococcal Vaccine: 50+ Years (1 of 1 - PCV) 02/07/2012 Dental Oral Exam 11/25/2014 05/27/2014 Dental X-Ray: Bitewings 05/21/2015 05/20/20 14, 04/20/1994, 02/22/1994 Dental X-Ray: Full Mouth 05/21/2017 014, 04/02/2014, 04/20/1994, Additional history exists [facility]-RSV Vaccine: 60+ Years or (1 - Risk 60-74 years 1-dose series) 2022 [id number] Vaccine ( - season) 2024 06/15/2021, 02/23/2021 [facility]-Influenza Vaccine (Season Ended) 2025 06/24/2019, 05/15/2017, 07/02/2016 Colonoscopy 02/22/2026 02/23/2016, 05/05/2014 [facility]-Colorectal Cancer Screening 02/22/2026 [facility]-HIV Screening Completed 12/19/2015 [facility]-Obesity Intervention Completed 10/30/2022, 07/17 HPV Vaccines Aged Out No longer eligi ble based on patient's age to complete this topic [facility]-HIB Vaccines Aged Out No longer e ligible based on patient's age to complete this topic [facility]-Hepatitis A Vaccines Aged Out No longer eligible based on patient's age to complete this topic [facility]-IPV Vaccines Aged Out No longer e ligible based on patient's age to complete this topic [facility]-Rotavirus Vaccines Aged Out No lo nger eligible based on patient's age to complete this topic Procedures Procedure Name Priority Date/Time Associated Diagnosis Comments COLONOSCOPY 02/23/2016 HIV 1/2 ANTIBODY/ANTIGEN SCREEN WITH REFLEX TO HIV I/II DIFFERENTIATION Routine 12/19/2015 12:17 PM EDT COMPREHENSIVE ORAL EVALUATION - NEW OR ESTABLISHED PATIENT Routine 05/27/2014 12:00 AM EST INTRAORAL - COMPLETE SERIES OF RADIOGRAPHIC IMAGES Routine 05/20/2014 12:00 AM EST PROPHYLAXIS - ADULT Routine 09/22/1993 1 2:00 AM EST from Last 3 Months or Most Recently Relevant to Health Maintenance Results * COLONOSCOPY (02/23/2016) Anatomical Region Laterality Modality Endoscopy Narrative 02/23/2016 Ordered by an unspecified provider. us Historical Provider GI PROCEDURE ORDERABLES F inal Result * HIV 1 & 2 Antibody/Antigen Screen (12/19/2015 12:17 PM EDT) HIV 1 Result NONREACTIVE Screening for HIV 1 and 2 antibodies is NONREACTIVE. No confirmatory testing is required. SUNQUEST 12/19/2015 12:1 7 PM EDT 12/19/2015 3:33 PM EDT Historical Provider LAB BLOOD ORDERABLES Destiny l Result Performing Organization Address City/State/[facility] Co de Phone Number SUNQUEST from Last 3 Months or Most Recently Relevant to Health Maintenance Insurance Care Teams Scrap Separator Relationship Specialty Start Date End Date Clayton Story MD [address] [place] [id number] PCP - General 11/25/20
--- NOTE | 2024-12-25 17:15 | MR_ITS ---
PROCEDURE INFORMATION: Exam: MR Right Upper Extremity Joint Without Contrast; Shoulder Exam date and time: 12/25/2024 5:12 PM Age: 64 years old Clinical indication: Prior surgery; Surgery date: 6+ months; Surgery type: Rotator cuff; Right shoulder pain , lrom. Popping when moving shoulder; Additional info: Right shoulder injury TECHNIQUE: Imaging protocol: Magnetic resonance imaging of the right upper extremity without contrast. Exam focused on the shoulder. COMPARISON: MR SHOULDER RT W CON 06/22/2024 10:39 AM FINDINGS: Bones/joints: Marrow edema and insertional intraosseous cyst formation is seen at the greater tuberosity of the humeral head. No fracture or dislocation is seen. There is mild degenerative hypertrophy at the acromioclavicular joint. No joint effusion. Glenoid labrum: There is a degenerative appearing superior glenoid labral tear. Supraspinatus tendon: There is supraspinatus tendinopathy with partial-thickness intrasubstance and bursal surface tear involving less than 50% of the tendon thickness. Infraspinatus tendon: There is mild infraspinatus tendinopathy involving the superior tendon fibers. Subscapularis tendon: The subscapularis tendon is normal. Teres minor tendon: The teres minor tendon is normal. Tendon of biceps brachii: There is partial tear of the biceps tendon, with associated biceps tenosynovitis. IMPRESSION: 1. Partial-thickness supraspinatus tear, with underlying tendinopathy. 2. Mild infraspinatus tendinopathy. 3. Partial tear of the biceps tendon, with associated tenosynovitis. 4. Degenerative appearing superior glenoid labral tear.
== END 2024-12-25 23:59 | disposition home or self-care (01) ==
LOC: RAD 17:06
PROVIDERS: PCP Physician Assistant; Visit Provider Physician Assistant Surgical
DX: M75.111 Incomplete rotator cuff tear or rupture of right shoulder, not specified as traumatic (principal); S46.211A Strain of muscle, fascia and tendon of other parts of biceps, right arm, initial encounter; M65.921 Unspecified synovitis and tenosynovitis, right upper arm; M77.8 Other enthesopathies, not elsewhere classified
CPT/HCPCS: 73221

== ENCOUNTER 2025-04-05 10:43 | Outpatient (CLI) | payer OTHER, SELFPAY ==
--- NOTE | 2025-04-05 10:48 | US_ITS ---
FINAL REPORT CLINICAL HISTORY: bilateral feet numbness and tingling right > left. Smoker COMPARISON: None FINDINGS: ANKLE-BRACHIAL PRESSURE INDICES Pressure indices are as follows: RIGHT LOWER EXTREMITY: Ankle-brachial pressure index: 1.3 Comments: Normal LEFT LOWER EXTREMITY: Ankle-brachial pressure index: 1.2 Comments: Normal CONCLUSION: No evidence of significant obstructive peripheral vascular disease of the lower extremities Reviewed, Interpreted and Dictated by Cindi Lama MD Transcribed by Clara Bañuelos Authenticated and [facility]
--- OUTSIDE RECORDS SUMMARY | 2025-04-05 10:48 | XMS_ITS | Clinical Summary ---
Author Organization [facility] Address [address] [place] [address] Care Team Providers Care Recovery Rn Name Role Phone Clayton Story MD Primary Care Provider Allergies No known active allergies Medications HYDROcodone-vijaya taminophen (NORCO) 7.5-325 MG per tablet TAKE 1 TABLET BY MOUTH THREE TIMES DAILY MAY CAUSE DROWSINESS 0 9 Active doxazosin (CARDURA) 8 MG tablet Take 8 mg by mouth every night at bedtime. 1 9 Active omeprazole (priLOSEC) 40 MG capsule 9 Active tamsulosin (FLOMAX) 0.4 MG capsule 24 hr capsule Take 1 capsule by mouth Daily. 0 9 Active temazepam (RESTORIL) 30 MG capsule TAKE ONE CAPSULE BY MOUTH EVERY DAY AT BEDTIME NEEDED FOR SLEEP MAY CAUSE DROWSINESS 1 9 Active mirtazapine (REMERON) 45 MG tablet Take 45 mg by mouth Daily. 2 9 Active GNP STOOL SOFTENER 100 MG capsule 9 Active meloxicam (MOBIC) 15 MG tablet Take 15 mg by mouth Daily. Active Active Problems No known active problems Family History Medical History Relation Name Comments Cancer Father Cancer Mother Relation Name Status Comments Father Mother Social History Tobacco Use Types Packs/Day Years Used Date Smoking Tobacco: Former Smokeless Tobacco: Never Alcohol Use Standard Drinks/Week Comments Yes 0 (1 standard drink = 0.6 oz pur e alcohol) Abuse Screen Answer Date Recorded Unsafe at Home or Work/School Not on file Feels Threatened by Someone? Not on file 10/ 03/2023 Does Anyone Keep You from Co ntacting Others or Doint Things Outside the Home? Not on file 04/22/2023 Physical Sign of Abuse Present Not on file 1 Housing Stability Answer Date Recorded Current Living Arrangements Not on file 03/2023 Potentially Unsafe Housing Conditions Not on chelsea e 04/22/2023 Family and Community Support Answer Javad e Recorded Help with Day-to-Day Activities Not on file 04/22/2023 Lonely or Isolated Not on file 04/22/2023 Employment Answer Date Recorded Do you want help finding or keeping work or a chantelle b? Not on file 04/22/2023 Disabilities Answer Date Recorded Concentrating, Remembering, or Making Decisions Difficulty Not on file 04/22/2023 Doing Errands Independently Difficulty Not on fi le 04/22/2023 Education Answer Date Recorded Help with school or training? Not on file Preferred Language Not on file 04/22/2023 Sex and Gender Information Value Date Recorded Sex Assigned at Not on file Legal Sex Male 10:44 AM EDT Gender Identity Not on file Sexual Orientation Not on file Last Filed Vital Signs Vital Sign Reading Time Taken Comments Blood Pressure 110/80 06/08/2019 9:43 AM EST Pulse - - Temperature 36.6 C (97.8 F) 06/08/2019 9:43 AM EST Respiratory Rate - - Oxygen Saturation - - Inhaled Oxygen Concentration - - Weight 101 kg (222 lb) 06/08/2019 9:43 AM EST Height 193 cm (6' 4 ) 06/08/2019 9:43 AM EST Body Mass Index 27.02 06/08/2019 9:43 AM EST Plan of Treatment Health Maintenance Due Date Last Done Comments TDAP/TD VACCINES (1 - Tdap) 1981 COLOGUARD 2007 COLON CANCER SCREENING 5 YEAR SIGMOIDOSCOPY 2007 COLONOSCOPY [address] SCREENING [address] COLONOGRAPHY 2007 FECAL OCCULT BLOOD TEST 2007 FIT Testing (1 year) 2007 Pneumococcal Vaccine 50+ (1 of 1 - PCV) 02/07/2012 ZOSTER VACCINE (1 of 2) 02/07/2012 ANNUAL PHYSICAL 06/05/2019 HEPATITIS C SCREENING 06/05/2019 INFLUENZA VACCINE 02/12/2025 Insurance [facility] Care Teams Recovery Rn Relationship Specialty Start Date End Date Clayton Story MD PCP - General Emergency Medicine 05/20/19
--- OUTSIDE RECORDS SUMMARY | 2025-04-05 10:48 | XMS_ITS | Encounter Summary ---
Author Organization Healthcare Address [address] [place] [address] Care Team Providers Care Annealing Furnace Operator Name Role Phone Clayton Story MD Primary Care Provider [phone] Encounter Details Date Type Department Care Team ([facility] st Contact Info) Description 07/11/2022 Orders Only External Location [address] [place] [address] Provider, External Social History Tobacco Use Types [...] on filedocumented in this encounter Care Teams Annealing Furnace Operator Relationship Specialty Start Date End Date Clayton Story MD [address] [place] [address] PCP - General 11/25/20 documented as of this encounter
--- OUTSIDE RECORDS SUMMARY | 2025-04-05 10:48 | XMS_ITS | Clinical Summary ---
Author Organization Healthcare [place] [address] Care Team Providers Care Management Professional Name Role Phone Clayton Story MD Primary Care Provider [phone] Allergies No known active allergies Medications Ventolin HFA 108 (90 Base) MCG/ACT inhaler INHALE 2 PUFFS BY MOUTH EVERY 6 HOURS (administer with spacer) 3 Active diclofenac (Voltaren) 75 MG EC tablet TAKE ONE TABLET BY MOUTH TWICE DAILY --TAKE WITH FOOD-- 2 Active doxazosin (Cardura) 8 MG tablet Take 8 mg by mouth every night. 3 Active HYDROcodone-vijaya taminophen ([place]) 10-325 MG tablet TAKE ONE TABLET BY [...] 02/07/1980 [facility]-Adult SDOH Screenings 02/07/1980 [facility]-DTaP,Tdap,and Td Vaccine s (1 - Tdap) 1981 [facility]-Zoster Vaccines (1 of 2) 1981 CT Colonography 2007 FIT-DNA 2007 FIT 2007 FOBT 2007 Sigmoidoscopy 2007 [facility]-Pneumococcal Vaccine: 50 + Years (1 of 1 - PCV) 02/07/2012 [facility]-RSV Vaccine: 60+ Years o r (1 - Risk 60-74 years 1-dose series) 2022 [id number] Vaccine (3 - season) 2025 06/15/2021, 02/23/2021 [facility]-Influenza Vaccine (#1) 03/15/202506/24, 05/15/2017, 07/02/2016 Colonoscopy 02/22/2026 02/23/2016, 05/05/2014 [facility]-Colorectal Cancer Screening 02/22/2026 [facility]-HIV Screening Completed 12/19/2015 [facility]-Obesity Intervention Completed 023, 08/14/2022 HPV Vaccines Aged Out No longer eligi [...] I/II DIFFERENTIATION Routine 12/19/2015 12:17 PM EDT from Last 3 Months or Most Recently Relevant to Health Maintenance Results * COLONOSCOPY (02/23/2016) Anatomical Region Laterality Modality Endoscopy Narrative 02/23/2016 Ordered by an unspecified provider. us Historical Provider GI PROCEDURE ORDERABLES Destiny l Result * HIV 1 & 2 Antibody/Antigen Screen (12/19/2015 12:17 PM EDT) HIV 1 Result NONREACTIVE Screening for HIV 1 and 2 antibodies is NONREACTIVE. No confirmatory testing is required. SUNQUEST 12/19/2015 12:1 7 PM EDT 12/19/2015 3:33 PM EDT us Historical Provider LAB BLOOD ORDERABLES Final R esult SUNQUEST from Last 3 Months or Most Recently Relevant to Health Maintenance [place] [address] [place] [address] MEDICAID Care Teams Management Professional Relationship Specialty Start Date End Date Clayton Story MD [address] [place] [id number] PCP - General 11/25/20
== END 2025-04-05 23:59 | disposition home or self-care (01) ==
LOC: RT 10:45
PROVIDERS: PCP Physician Assistant; Visit Provider Physician Assistant
DX: R20.0 Anesthesia of skin (principal); R20.2 Paresthesia of skin; F17.200 Nicotine dependence, unspecified, uncomplicated
CPT/HCPCS: 93923

== ENCOUNTER 2025-04-12 11:00 | Outpatient (RCR) | payer OTHER, SELFPAY | END 2025-04-12 23:59 | disposition home or self-care (01) | LOC: OT 11:00 | PROVIDERS: Visit Provider Orthopaedic Surgery | DX: G56.91 Unspecified mononeuropathy of right upper limb (principal) | CPT/HCPCS: 97014; 97110; 97140; 97166; 97530; G0283 ==

== ENCOUNTER 2025-04-21 10:00 | Outpatient (RCR) | payer OTHER, SELFPAY | END 2025-04-21 23:59 | disposition home or self-care (01) | LOC: OT 10:00 | PROVIDERS: Visit Provider Orthopaedic Surgery | DX: G56.91 Unspecified mononeuropathy of right upper limb (principal) | CPT/HCPCS: 97014; 97110; 97140; G0283 ==

== ENCOUNTER 2025-05-06 07:00 | Outpatient (RCR) | payer OTHER, SELFPAY | END 2025-05-06 23:59 | disposition home or self-care (01) | LOC: PT.CARL 07:00 | PROVIDERS: Visit Provider Physician Assistant | DX: R20.0 Anesthesia of skin (principal) | CPT/HCPCS: 97032; 97110; 97140; 97162 ==

== ENCOUNTER 2025-06-07 09:47 | Outpatient (CLI) | payer OTHER, SELFPAY ==
--- NOTE | 2025-06-07 09:49 | MR_ITS ---
FINAL REPORT TECHNIQUE: Multiplanar and multisequence imaging of the lumbar spine was obtained without contrast. CLINICAL HISTORY: LBP AFFECTING LLE hx of lower back surgery x 15 years ago right leg pain since november 2024 COMPARISON: None FINDINGS: There is normal alignment of the lumbar vertebral bodies in the sagittal plane. Vertebral body height is preserved. The spinal cord ends at the level of L1. There is normal signal intensity within the substance of the distal spinal cord. No acute bone marrow edema or pathologic marrow replacement. Note is made of bilateral renal cysts. L1-2: An annular bulge is present with degenerative endplate changes and facet osteoarthropathy. There is no central canal stenosis or neural foraminal narrowing. L2-3: Mild to arthropathy is present without focal disc herniation. L3-4: An annular bulge is present with degenerative endplate changes and facet osteoarthropathy. There is mild inferior left neural foraminal narrowing. L4-5: An annular bulge is present with degenerative endplate changes and facet osteoarthropathy. There is mild to moderate bilateral neural foraminal narrowing. L5-S1: An annular bulge is present with degenerative endplate changes and facet osteoarthropathy. There is moderate left greater than right neural foraminal narrowing. IMPRESSION: Multilevel lumbar degenerative changes present, most pronounced at the L5-S1 level. Reviewed, Interpreted and Dictated by Cindi Lama MD Transcribed by Clara Bañuelos Authenticated and [facility]
--- OUTSIDE RECORDS SUMMARY | 2025-06-07 09:52 | XMS_ITS | Clinical Summary ---
Author Organization Healthcare [place] [address] Care Team Providers Care Yarn Spooler Name Role Phone Clayton Story MD Primary Care Provider [phone] Allergies No known active allergies Medications Ventolin HFA 108 (90 Base) MCG/ACT inhaler INHALE 2 PUFFS BY MOUTH EVERY 6 HOURS (administer with spacer) 3 Active diclofenac (Voltaren) 75 MG EC tablet TAKE ONE TABLET BY MOUTH TWICE DAILY --TAKE WITH FOOD-- 2 Active doxazosin (Cardura) 8 MG tablet Take 8 mg by mouth every night. 3 Active HYDROcodone-vijaya taminophen ([place]) 10-325 MG tablet TAKE ONE TABLET BY [...] [facility]-Depression Screening 1962 [facility]-Hepatitis C Screening 1962 [facility]-Infant/Child/Adol SDOH Screenings 1962 [facility]- SDOH Screenings 02/07/1980 [facility]-Adult SDOH Screenings 02/07/1980 [facility]-DTaP,Tdap,and Td Vaccine s (1 - Tdap) 1981 [facility]-Zoster Vaccines (1 of 2) 1981 CT Colonography 2007 FIT-DNA 2007 FIT 2007 FOBT 2007 Sigmoidoscopy 2007 [facility]-Pneumococcal Vaccine: 50 + Years (1 of 1 - PCV) 02/07/2012 [facility]-RSV Vaccine: 60+ Years o r (1 - Risk 60-74 years 1-dose series) 2022 [id number] Vaccine (3 - season) 2025 06/15/2021, 02/23/2021 [...] Most Recently Relevant to Health Maintenance [place] [address] [place] [address] MEDICAID Care Teams Yarn Spooler Relationship Specialty Start Date End Date Clayton Story MD [address] [place] [id number] PCP - General 11/25/20
--- OUTSIDE RECORDS SUMMARY | 2025-06-07 09:52 | XMS_ITS | Encounter Summary ---
Author Organization Healthcare Address [address] [place] [address] Care Team Providers Care Diving Coach Name Role Phone Clayton Story MD Primary Care Provider [phone] Encounter Details Date Type Department Care Team ([facility] st Contact Info) Description 07/11/2022 Orders Only External Location [address] [place] [address] Provider, External Social History Tobacco Use Types [...] on filedocumented in this encounter Care Teams Diving Coach Relationship Specialty Start Date End Date Clayton Story MD [address] [place] [address] PCP - General 11/25/20 documented as of this encounter
--- OUTSIDE RECORDS SUMMARY | 2025-06-07 09:52 | XMS_ITS | Clinical Summary ---
Author Organization [facility] Address [address] [place] [address] Care Team Providers Care Ramp Supervisor Name Role Phone Clayton Story MD Primary [...] C SCREENING 06/05/2019 INFLUENZA VACCINE 02/12/2025 Insurance [facility] Care Teams Ramp Supervisor Relationship Specialty Start Date End Date Clayton Story MD PCP - General Emergency Medicine 05/20/19
== END 2025-06-07 23:59 | disposition home or self-care (01) ==
LOC: RAD 09:47
PROVIDERS: PCP Physician Assistant; Visit Provider Physician Assistant
DX: M47.26 Other spondylosis with radiculopathy, lumbar region (principal); M47.27 Other spondylosis with radiculopathy, lumbosacral region
CPT/HCPCS: 72148